=== PATIENT | female | born 1955 | race Caucasian/White ===

== ENCOUNTER 2019-12-05 07:45 | Outpatient (CLI) | payer MEDICARE, SELFPAY ==
--- NOTE | ~2019-12-05 | DEXA_ITS ---
Bone Density Report Name: Lizz Morin Age: 63 Sex: Female Ethnicity: White Date of : 1955 Indication: postmenopausal; Referring Provider: Obdulia, Maren Estrada Study: Bone densitometry was performed. Exam Date: December 05, 2019 Accession number: [id number] Bone Density: Region BMD T-score Z-score Classification AP Spine (L1-L4) 0.784 -2.4 -0.8 Osteopenia Femoral Neck (Left) 0.697 -1.4 0.0 Osteopenia Total Hip (Left) 0.890 -0.4 0.6 Normal Total Hip Bilateral Avg 0.861 -0.6 0.4 Normal Femoral Neck (Right) 0.683 -1.5 -0.1 Osteopenia Total Hip (Right) 0.831 -0.9 0.1 Normal World Health Organization criteria for BMD impression classify patients as: Normal (T-score at or above -1.0), Osteopenia (T-score between -1.0 and -2.5), or Osteoporosis (T-score at or below -2.5). 10-year Fracture Risk(1): Major Osteoporotic Fracture 8.4% Hip Fracture 0.8% Reported Risk Factors: [place] (), Neck BMD=0.683, BMI=27.7 (1) FRAX(R) Version 3.08. Fracture probability calculated for an untreated patient. Fracture probability may be lower if the patient has received treatment. Clinical Information Provided by Patient: Has used the following medications: Vitamin D, Calcium Patient maximum height was 62 Menopause Age: 52 Onset of menses at age 15 Number of children 2 Impression: The patient has low bone mass, based on the Total Spine T-score. The patient has an estimated ten-year risk of hip fracture of 0.8% and an estimated ten-year risk of major fracture of 8.4%, based on the WHO FRAX algorithm. Discussion: BONE DENSITY IS LOW AT ONE OR MORE SKELETAL SITES. This patient's lowest T-score is low at one or more skeletal sites. It meets the World Health Organization's (WHO) criteria for ?low bone mass? (T-score between -1.0 and -2.5). The patient's 10-year risk of fracture as calculated by FRAX is less than the threshold where pharmacological therapy is recommended by the National Osteoporosis Foundation (NOF). However, all treatment decisions require clinical judgment and consideration of individual patient factors, including patient preferences, comorbidities, previous drug use, risk factors not captured in the FRAX model (e.g., frailty, falls, vitamin D deficiency, increased bone turnover, interval significant decline in bone density) and possible under or overestimation of fracture risk by FRAX. The patient should follow a healthful lifestyle (good nutrition with adequate calcium and vitamin D, and appropriate weight-bearing exercise). Follow-Up: Consider repeating this study in 2 to 3 years to reassess this patient's status, or sooner if there is some new clinical indication. Reported by: VAIBHAV on 12/05/2019 8:40:00 AM. Reviewed, dictated and finalized at
--- NOTE | ~2019-12-05 | MM_ITS ---
EXAMINATION: MM screening brenda BI w lu HISTORY: Screening mammogram TECHNIQUE: Craniocaudal and mediolateral oblique 3-D tomosynthesis images were obtained and synthetic 2-D images were generated. CAD analysis was submitted and interpreted. COMPARISON: 12/11/2018 diagnostic right digital mammogram 12/02/2018, 11/30/2017, 11/28/2016 bilateral digital screening mammogram examinations BREAST PARENCHYMAL COMPOSITION: The breasts are heterogeneously dense, which may obscure small masses . FINDINGS: Subtle microcalcifications are noted in the outer right breast on cc view. Magnification vi ews are recommended. Otherwise there is no evidence of suspicious mass, calcification, or architectural distortion to sugg est malignancy in either breast. There has been no suspicious interval change. IMPRESSION: 1. Subtle indeterminate microcalcifications of right breast 2. Diagnostic right mammogram with magnification views is recommended. BI-RADS Category 0: Incomplete: Needs additional imaging evaluation. Reviewed, dictated and finalized at location A.
== END 2019-12-05 07:46 | disposition home or self-care (01) ==
PROVIDERS: PCP Family Medicine; Visit Provider Nurse Practitioner Obstetrics & Gynecology
DX: Z12.31 Encounter for screening mammogram for malignant neoplasm of breast (principal); Z78.0 Asymptomatic menopausal state; R92.8 Other abnormal and inconclusive findings on diagnostic imaging of breast; M85.89 Other specified disorders of bone density and structure, multiple sites
CPT/HCPCS: 77063; 77067; 77080

== ENCOUNTER 2019-12-18 10:58 | Outpatient (CLI) | payer MEDICARE, SELFPAY ==
--- NOTE | ~2019-12-18 | MMUS_ITS ---
EXAMINATION: MM diagnostic mammo unilat RT, US breast RT complete HISTORY: Subtle microcalcifications noted in the outer right breast on screening craniocaudal view of 12/05/2019 TECHNIQUE: Additional 3-D tomosynthesis images of the right breast were performed and synthetic 2-D i mages were generated. Magnification views of right breast in 3 projections. CAD analysis was submitte d and interpreted. High resolution complete right breast ultrasound was performed. COMPARISON: 12/05/2019 bilateral digital screening mammogram FINDINGS: MAMMOGRAPHIC FINDINGS: Arterial calcifications and occasional punctate subtle benign calcifications are noted, without any a pparent malignant features. ULTRASOUND: There is no evidence of focal abnormal solid or cystic lesion or significant abnormal shadowing of th e right breast. IMPRESSION: 1. No mammographic evidence of malignancy 2. Routine annual mammographic screening is recommended. BI-RADS Category 2: Benign finding(s). Reviewed, dictated and finalized at location A. IMPRESSION: 1. No mammographic evidence of malignancy 2. Routine annual mammographic screening is recommended. BI-RADS Category 2: Benign finding(s).
== END 2019-12-18 10:59 | disposition home or self-care (01) ==
PROVIDERS: PCP Family Medicine; Visit Provider Nurse Practitioner Obstetrics & Gynecology
DX: R92.8 Other abnormal and inconclusive findings on diagnostic imaging of breast (principal)
CPT/HCPCS: 76641; 77065

== ENCOUNTER → 2020-12-21 08:32 | Outpatient (CLI) | payer MEDICARE, SELFPAY ==
--- NOTE | ~2020-12-21 | MM_ITS ---
EXAMINATION: MM screening brenda BI w lu HISTORY: Screening TECHNIQUE: Craniocaudal and mediolateral oblique 3-D tomosynthesis images were obtained and synthetic 2-D images were generated. CAD analysis was submitted and interpreted. COMPARISON: Comparison to multiple prior studies sequentially, with oldest reviewed study dated 11/30. BREAST PARENCHYMAL COMPOSITION: The breasts are heterogenously dense, which may obscure small masses. FINDINGS: There is no evidence of suspicious mass, calcification, or architectural distortion to sugg est malignancy in either breast. There has been no suspicious interval change. IMPRESSION: 1. No mammographic evidence of malignancy. 2. Recommend routine screening mammography in one year. BI-RADS Category 1: Negative Reviewed, dictated and finalized at location A.
== END ==
PROVIDERS: Visit Provider Nurse Practitioner Obstetrics & Gynecology
DX: Z12.31 Encounter for screening mammogram for malignant neoplasm of breast (principal)
CPT/HCPCS: 77063; 77067

== ENCOUNTER 2021-04-15 15:01 | Outpatient (CLI) | payer MEDICARE, SELFPAY ==
--- NOTE | ~2021-04-15 | XR_ITS ---
EXAMINATION: XR chest 2V EXAM DATE: 04/15/2021 15:19 INDICATION: R05 - Cough,, chronic for 2 years. TECHNIQUE: Frontal and lateral projections of the chest obtained and reviewed. Comparison is made to prior examination from 11/19/2017. FINDINGS: The lungs are clear. There are no pleural effusions. The cardiomediastinal silhouette is within normal limits. There is no pneumothorax suspected. Mild thoracic spondylosis. There are chol ecystectomy clips. IMPRESSION: No acute cardiopulmonary findings. Reviewed, dictated and finalized at location A.
== END 2021-04-15 15:02 | disposition home or self-care (01) ==
PROVIDERS: PCP Family Medicine; Visit Provider Family Medicine
DX: R05 Cough (principal)
CPT/HCPCS: 71046

== ENCOUNTER → 2021-12-22 11:29 | Outpatient (CLI) | payer MEDICARE, SELFPAY ==
--- NOTE | ~2021-12-22 | MM_ITS ---
EXAMINATION: MM screening [facility] BI w lu HISTORY: Screening mammogram TECHNIQUE: Craniocaudal and mediolateral oblique 3-D tomosynthesis images were obtained and synthetic 2-D images were generated. CAD analysis was submitted and interpreted. COMPARISON: 12/21/2020, 12/18/2019, 12/05/2019, 12/21/2018, 11/23/2018 BREAST PARENCHYMAL COMPOSITION: The breasts are heterogeneously dense, which may obscure small masses . FINDINGS: There is no suspicious mass, calcification, or architectural distortion to suggest malignan cy in either breast. There has been no suspicious interval change. IMPRESSION: 1. No mammographic evidence of malignancy. 2. Recommend routine screening mammography in one year. BI-RADS Category 1: Negative Reviewed, dictated and finalized at location A.
== END ==
PROVIDERS: PCP Family Medicine; Visit Provider Nurse Practitioner Obstetrics & Gynecology
DX: Z12.31 Encounter for screening mammogram for malignant neoplasm of breast (principal)
CPT/HCPCS: 77063; 77067

== ENCOUNTER 2021-12-30 09:00 | Outpatient (CLI) | payer MEDICARE, SELFPAY ==
--- NOTE | ~2021-12-30 | NM_ITS ---
EXAMINATION: NM stress w perf spect multi DATE: 12/30/2021 12:00 INDICATION: Chest pain. TECHNIQUE: Rest images were obtained following intravenous administration of 9.47 mCi Tc99m tetrofosm in (Myoview). The patient performed an exercise activity. At peak exercise, 30 mCi Tc99m tetrofosmin (Myoview) was administered intravenously, and stress images were obtained. Data was reconstructed int o short axis and horizontal and vertical long axis SPECT images. Gated SPECT images were also obtaine d. COMPARISON: None. FINDINGS: There is no definite reversible or fixed perfusion abnormality to suggest ischemia or infar ction. There is no segmental wall motion abnormality. Left ventricular ejection fraction measures > 70%. IMPRESSION: 1. No definite ischemia or infarct. 2. Normal left ventricular ejection fraction measuring >70%. Reviewed, dictated and finalized at location A.
--- NOTE | 2021-12-30 10:31 | EST_ITS ---
Patient Info Name: Lizz Morin Age: 66 years : 1955 Gender: Female Ht: 62 in Wt: 148 lbs BSA: 1.73 m2 HR: 64 bpm BP: 132 / 87 mmHg Heart Rhythm: Sinus Rhythm Exam Date: 12/30/2021 10:43 AM Exam Location: [facility] Stress Patient Status: Outpatient Admit Date: 12/30/2021 Staff Ordering Physician: Brent Smart MD Attending Provider: Brent Smart MD Exercise Technologist: Rica Ashby CT Exercise Physician: Kota Crowell DO Exam Type: CA stress test treadmill w NM Study Info Indications R07.9 - Chest pain, unspecified A nuclear stress test was performed. Summary 1. 1. Negative Ezequiel exercise stress test for ischemic ST changes by ECG criteria. 2. 2. Good functional capacity, achieving 10 METs of workload. 3. 3. Appropriate HR response to exercise. 4. 4. Appropriate HR recovery at 1 minute post exercise. 5. 5. Hypertensive response to exercise. 6. 6. Nuclear scan to follow and will be reported separately. Please correlate with it. 7. 7. Patient informed of the above results. Protocol: Ezequiel Stress ECG Details Stage: REST Duration (min): 1 min : 6 sec Speed (mph): 0.0 Grade (%): 0 HR (bpm): 64 SBP (mmHg): 132 DBP (mmHg): 87 METS: --- Stage: REST Duration (min): 10 min : 26 sec Speed (mph): 0.0 Grade (%): 0 HR (bpm): 69 SBP (mmHg): 132 DBP (mmHg): 87 METS: --- Stage: STAGE 1 Duration (min): 1 min : 0 sec Speed (mph): 1.7 Grade (%): 10 HR (bpm): 87 SBP (mmHg): 132 DBP (mmHg): 87 METS: --- Stage: STAGE 1 Duration (min): 2 min : 0 sec Speed (mph): 1.7 Grade (%): 10 HR (bpm): 108 SBP (mmHg): 132 DBP (mmHg): 87 METS: --- Stage: STAGE 1 Duration (min): 3 min : 0 sec Speed (mph): 1.7 Grade (%): 10 HR (bpm): 109 SBP (mmHg): 177 DBP (mmHg): 84 METS: --- Stage: STAGE 2 Duration (min): 1 min : 0 sec Speed (mph): 2.5 Grade (%): 12 HR (bpm): 116 SBP (mmHg): 177 DBP (mmHg): 84 METS: --- Stage: STAGE 2 Duration (min): 2 min : 0 sec Speed (mph): 2.5 Grade (%): 12 HR (bpm): 120 SBP (mmHg): 200 DBP (mmHg): 84 METS: --- Stage: STAGE 2 Duration (min): 3 min : 0 sec Speed (mph): 2.5 Grade (%): 12 HR (bpm): 121 SBP (mmHg): 200 DBP (mmHg): 84 METS: --- Stage: STAGE 3 Duration (min): 1 min : 0 sec Speed (mph): 3.4 Grade (%): 14 HR (bpm): 138 SBP (mmHg): 200 DBP (mmHg): 84 METS: --- Stage: STAGE 3 Duration (min): 1 min : 45 sec Speed (mph): 3.4 Grade (%): 14 HR (bpm): 137 SBP (mmHg): 200 DBP (mmHg): 84 METS: --- Stage: RECOVERY Duration (min): 0 min : 14 sec Speed (mph): 1.5 Grade (%): 0 HR (bpm): 139 SBP (mmHg): 200 DBP (mmHg): 84 METS: --- Stage: RECOVERY Duration (min): 1 min : 14 sec Speed (mph): 0.0 Grade (%): 0 HR (bpm):
== END 2021-12-30 09:01 | disposition home or self-care (01) ==
LOC: ANHCARD 09:04
PROVIDERS: PCP Family Medicine; Visit Provider Family Medicine
DX: R07.89 Other chest pain (principal)
CPT/HCPCS: 78452; 93017; A9502

== ENCOUNTER 2022-01-20 07:55 | Outpatient (CLI) | payer MEDICARE, SELFPAY ==
--- NOTE | ~2022-01-20 | US_ITS ---
EXAMINATION: US carotid duplex BI DATE: 01/20/2022 09:20 INDICATION: Right carotid bruit TECHNIQUE: Grayscale, color Doppler, and pulsed Doppler images of the cervical carotid arteries were obtained. The degree of vessel stenosis is placed in one of the following categories: normal, <50%, 5 0-69%, >=70% but less than near-occlusion, near-occlusion, or total occlusion. Note that percent sten osis relative to normal distal artery lumen diameter is indirectly measured from velocity measurement s as described by Andrew, et al. Radiology 2003; 229:340-346. Notes: Normal: Peak systolic velocity <125 centimeters/sec and no plaque <50%. Peak systolic velocity <125 ( EDV <40; ICA/CCA PSV ratio <2.0; used these factors only a tandem lesions or low cardiac output or co ntralateral disease) 50-69 %: PSV 125-230 (EDV 40-100; ratio 2-4) >= 70% but less than near occlusion: PSV greater than 230 (EDV > 100; ratio> 4.0) Near Occlusion: PSV that is variable; markedly narrowed lumen Occlusion: Absent flow on color/spectral Doppler and no lumen on cesar scale. COMPARISON: None. FINDINGS: RIGHT: The right common carotid artery (CCA) peak systolic velocity (PSV) is 87 cm/s. The right internal car otid artery (ICA) PSV is 82 cm/s. The right ICA end-diastolic velocity (EDV) is 29 cm/s. The right IC A/CCA PSV ratio is 0.9. The external carotid artery (ECA) PSV is 84 cm/s. There is antegrade flow in the right vertebral artery. LEFT: The left CCA PSV is 81 cm/s. The left ICA PSV is 69 cm/s. The left ICA EDV is 24 cm/s. The left ICA/C CA PSV ratio is 0.8. The ECA PSV is 56 cm/s. There is antegrade flow in the left vertebral artery. IMPRESSION: 1. Less than 50% stenosis in the right internal carotid artery by sonographic criteria. 2. Less than 50% stenosis in the left internal carotid artery by sonographic criteria. Reviewed, dictated and finalized at location A. IMPRESSION: 1. Less than 50% stenosis in the right internal carotid artery by sonographic hannah whitfield. 2. Less than 50% stenosis in the left internal carotid artery by sonographic gerardo chacko.
--- NOTE | ~2022-01-20 | DEXA_ITS ---
Bone Density Report Name: THANG MOLINA Age: 66 Sex: Female Ethnicity: White Date of : 1955 Indication: postmenopausal; screening for osteoporosis; Referring Provider: JOB CARLISLE Study: Bone densitometry was performed. Exam Date: January 20, 2022 Accession number: [id number] Bone Density: Region BMD T-score Z-score Classification AP Spine(L1-L4) 0.799 -2.3 -0.6 Osteopenia Femoral Neck (Left) 0.672 -1.6 -0.1 Osteopenia Total Hip (Left) 0.791 -1.2 -0.1 Osteopenia Femoral Neck (Right) 0.668 -1.6 -0.2 Osteopenia Total Hip (Right) 0.800 -1.2 0.0 Osteopenia Total Hip Mean 0.795 -1.2 -0.1 Osteopenia World Health Organization criteria for BMD impression classify patients as: Normal (T-score at or above -1.0), Osteopenia (T-score between -1.0 and -2.5), or Osteoporosis (T-score at or below -2.5). 10-year Fracture Risk(1): Major Osteoporotic Fracture 9.1% Hip Fracture 1.0% Reported Risk Factors: [place] (), Neck BMD=0.672, BMI=27.3 (1) FRAX(R) Version 3.08. Fracture probability calculated for an untreated patient. Fracture probability may be lower if the patient has received treatment. Clinical Information Provided by Patient: Has used the following medications: Vitamin D, Calcium Patient maximum height was 62 Menopause Age: 52 Drinks caffeinated beverages Onset of menses at age 15 Number of children 2 Impression: The patient has low bone mass, based on the Total Spine T-score. The patient has an estimated ten-year risk of hip fracture of 1% and an estimated ten-year risk of major fracture of 9.1%, based on the WHO FRAX algorithm. Discussion: BONE DENSITY IS LOW AT ONE OR MORE SKELETAL SITES. This patient's lowest T-score is low at one or more skeletal sites. It meets the World Health Organization's (WHO) criteria for ?low bone mass? (T-score between -1.0 and -2.5). The patient's 10-year risk of fracture as calculated by FRAX is less than the threshold where pharmacological therapy is recommended by the National Osteoporosis Foundation (NOF). However, all treatment decisions require clinical judgment and consideration of individual patient factors, including patient preferences, comorbidities, previous drug use, risk factors not captured in the FRAX model (e.g., frailty, falls, vitamin D deficiency, increased bone turnover, interval significant decline in bone density) and possible under or overestimation of fracture risk by FRAX. The patient should follow a healthful lifestyle (good nutrition with adequate calcium and vitamin D, and appropriate weight-bearing exercise). Follow-Up: Consider repeating this study in 2 to 3 years to reassess this patient's status, or sooner if there is some new clinical indication. Reported by: KAMI on 01/20/2022 8:15:00 AM.
== END 2022-01-20 07:56 | disposition home or self-care (01) ==
LOC: ANHIMG 07:56
PROVIDERS: PCP Family Medicine; Visit Provider Family Medicine
DX: R09.89 Other specified symptoms and signs involving the circulatory and respiratory systems (principal); Z78.0 Asymptomatic menopausal state; I65.23 Occlusion and stenosis of bilateral carotid arteries; M85.89 Other specified disorders of bone density and structure, multiple sites
CPT/HCPCS: 77080; 93880

== ENCOUNTER → 2022-12-25 10:36 | Outpatient (CLI) | payer MEDICARE, SELFPAY ==
--- NOTE | ~2022-12-25 | MM_ITS ---
EXAMINATION: MM screening [facility] BI w lu HISTORY: Screening mammogram TECHNIQUE: Craniocaudal and mediolateral oblique 3-D tomosynthesis images were obtained and synthetic 2-D images were generated. CAD analysis was submitted and interpreted. COMPARISON: 12/22/2021, 11/21/2020, 12/18/2019, 12/05/2019, 12/02/2018 BREAST PARENCHYMAL COMPOSITION: The breasts are heterogeneously dense, which may obscure small masses . FINDINGS: No suspicious mass, calcification, or architectural distortion are identified in either dion ast to suggest malignancy. There has been no suspicious interval change. IMPRESSION: 1. No mammographic evidence of malignancy. 2. Recommend routine screening mammography in one year. BI-RADS Category 1: Negative Reviewed, dictated and finalized at location A.
== END ==
PROVIDERS: PCP Family Medicine; Visit Provider Family Medicine
DX: Z12.31 Encounter for screening mammogram for malignant neoplasm of breast (principal)
CPT/HCPCS: 77063; 77067

== ENCOUNTER → 2023-07-17 15:06 | Outpatient (CLI) | payer MEDICARE, SELFPAY ==
--- NOTE | ~2023-07-17 | XR_ITS ---
EXAMINATION: XR chest 2V Exam Date/Time: 07/17/2023 15:09 SOCIAL MEDIA JOB TITLES HISTORY: R05.9 - Cough, unspecified x 3 wks Comparison: 04/15/2021. RESULT: Lines, tubes, and devices: Cholecystectomy clips. Lungs and pleura: Clear. Cardiomediastinal silhouette: Stable. Other: No acute osseous or upper abdominal finding. IMPRESSION: No acute cardiopulmonary process. Reviewed, dictated and finalized at location K. [place] MEDIA JOB TITLES
== END ==
PROVIDERS: PCP Family Medicine; Visit Provider Family Medicine
DX: R05.9 Cough, unspecified (principal)
CPT/HCPCS: 71046

== ENCOUNTER 2023-12-28 08:13 | Outpatient (CLI) | payer MEDICARE, SELFPAY ==
--- NOTE | ~2023-12-28 | MM_ITS ---
EXAMINATION: MM screening brenda BI w lu HISTORY: Screening mammogram TECHNIQUE: Craniocaudal and mediolateral oblique 3-D tomosynthesis images were obtained and synthetic 2-D images were generated. CAD analysis was submitted and interpreted. COMPARISON: 12/25/2022, 12/22/2021 bilateral screening mammogram examinations BREAST PARENCHYMAL COMPOSITION: The breasts are heterogeneously dense, which may obscure small masses . FINDINGS: There is no evidence of suspicious mass, calcification, or architectural distortion to sugg est malignancy in either breast. There has been no suspicious interval change. IMPRESSION: 1. No mammographic evidence of malignancy. 2. Recommend routine screening mammography in one year. BI-RADS Category 1: Negative Reviewed, dictated and finalized at location B.
== END 2023-12-28 08:14 | disposition home or self-care (01) ==
LOC: CHSIMG 08:14
PROVIDERS: PCP Family Medicine; Visit Provider Family Medicine
DX: Z12.31 Encounter for screening mammogram for malignant neoplasm of breast (principal)
CPT/HCPCS: 77063; 77067

== ENCOUNTER 2024-01-25 08:12 | Outpatient (CLI) | payer MEDICARE, SELFPAY ==
--- NOTE | ~2024-01-25 | DEXA_ITS ---
? Bone Density Report? Name:? THANG MOLINA Patient ID:??? [id number] Age:? 68 Sex:? Female Ethnicity:? White Date of : 1955 Indication: postmenopausal; screening for osteoporosis; parental hip fracture; height loss; Referring Provider: JOB CARLISLE Study: Bone densitometry was performed. Exam Date: January 25, 2024 Accession number: [id number] Bone Density: Region? BMD??? T-score? Z-score?? Classification AP Spine(L1-L4)? 0.728?? -2.9? -1.1? Osteoporosis Femoral Neck (Left)? 0.637?? -1.9? -0.3? Osteopenia Total Hip (Left)? 0.814?? -1.0? 0.2? Normal Femoral Neck (Right)? 0.650?? -1.8? -0.2? Osteopenia Total Hip (Right)? 0.800?? -1.2? 0.1? Osteopenia Femoral Neck Mean? 0.643?? -1.9? -0.3? Osteopenia Total Hip Mean? 0.807?? -1.1?0.2? Osteopenia World Health Organization criteria for BMD impression classify patients as: Normal (T-score at or above -1.0), Osteopenia (T-score between -1.0 and -2.5), or Osteoporosis (T-score at or below -2.5). 10-year Fracture Risk: FRAX not reported because: ? Some T-score for Spine Total or Hip Total or Femoral Neck at or below -2.5 Clinical Information Provided by Patient: Parent has had a hip fracture Has used the following medications: Vitamin D, Calcium, multi Patient maximum height was 62 Menopause Age: 52 No regular weight bearing exercise Does not regularly consume dairy products Drinks caffeinated beverages Onset of menses at age 15 Number of children 2 Impression: The patient has osteoporosis, based on the Total Spine T-score. The patient has risk factors, including: parental hip fracture. Discussion: INCREASED RISK OF FRACTURE. BONE DENSITY IS UNDESIRABLY LOW AT ONE OR MORE SKELETAL SITES, CONSISTENT WITH POSTMENOPAUSAL OSTEOPOROSIS. This patient's lowest T-score meets the World Health Organization's (WHO) criteria for osteoporosis at one or more sites (T-score -2.5 or below).? In untreated patients, the risk of osteoporotic fracture increases approximately two-fold for each 1.0 SD decrease in T-score.? Low bone density is not the only risk factor for fracture; also consider factors such as patient's age, frailty or poor health, risk of falling, risk of injury, previous osteoporotic fracture, family history of osteoporosis, cigarette smoking, low body weight, etc.? Not everyone with low bone mineral density has osteoporosis; osteomalacia and other metabolic bone disorders should also be considered. Patients who have osteoporosis should be evaluated for specific diseases and conditions (secondary causes) that may cause or contribute to bone loss.? The [place] [employer] (AA
== END 2024-01-25 08:13 | disposition home or self-care (01) ==
PROVIDERS: PCP Family Medicine; Visit Provider Family Medicine
DX: Z78.0 Asymptomatic menopausal state (principal); M81.0 Age-related osteoporosis without current pathological fracture; M85.89 Other specified disorders of bone density and structure, multiple sites
CPT/HCPCS: 77080

== ENCOUNTER 2024-08-29 22:21 | Emergency (ER) | payer MEDICARE, SELFPAY ==
[2024-08-29 22:22] VITALS: BP 146/78; PULSE 97; RESP 16; TEMP 36.7; O2SAT 97
--- OUTSIDE RECORDS SUMMARY | 2024-08-29 22:23 | XMS_ITS | Data Portability ---
Author Organization [facility] Address [address] [place] [address] Care Team Providers Care [employer] Teacher Name Role Phone AZALIA CARLISLE Primary Care Provider [phone] Assessment Encounter Date Assessment Date Assessment LastModified by Organization Details LastModified Time 12/05/2019 12/05/2019 Annual gynecological exam performed. Patient will come back in a year unless there are new symptoms. [email or web address] Not available 12/05/2019 10:17:46 12/20/2020 12/20/2020 Annual gynecological exam performed. Patient will come back in a year unless there are new symptoms. Not available 12/20/2020 10:12:25 12/22/2021 12/22/2021 Annual gynecological exam performed. Patient will come back in a year unless there are new symptoms. Not available 12/22/2021 12:01:24 12/25/2023 12/25/2023 Annual gynecological exam performed. Patient will come back in a year unless there are new symptoms. [email or web address] Not available 12/25/2023 09:56:22 Plan of Treatment Reminders Order Date Submit Date Provider Last Modified By Organization Details Last Modified Time Details Appointments None recorded. Lab None recorded. Referral gastroenter ologist referral - Lizz has seen Dr. Hollis in the past and prefers to see him, if possible 2020 021 [email or web address] [facility], [address], [id number], [place], [address], 14:44:11 Procedures None recorded. Surgeries None recorded. Imaging MAMMO, screening, bilateral 2023 024 [email or web address] [facility], [address] [place] [address], [place], [address], 4 10:23:50 Medication Orders Vagifem 10 mcg vaginal tablet 2023 024 [id number], [address] [place], [address], 4 10:09:30 Patient TargetsNo targets recorded. 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 Hollis in the past and prefers to see him, if possible Referring Physician: Maren Steiner, STRATEGIC DEVELOPMENT MANAGER, Encounter Date: 12/20/2020 Results Created Date Observation Date Name Description Value Unit Range Abnormal Flag Note LastModifiedBy Organization Detail LastModifiedTime 12/05/19 20 12/06/2019 HPV DNA, high- risk HPV high risk NOT DETECT ED normal The human papil lomav irus (HPV) High Risk Dorothy tirado is an FDA-a pprov ed in-vi tro ampli fied nucle ic acid test for the quali tativ e detec tion of E6/E7 viral mRNA. Resul joaquin lewis d be corre lated with patie nt prese ntati on, histo ry, cervi nahomi cytol ogy and other clini nahomi and labor atory findi ngs. See https ://ww wEclector. [employer]/s ites/ defau lt/fi les/2 018-0 3/AW- 68228 _002_ 01.pd f for carter tirado. Test perfo rmed by [facility], [address], [place] [address] , Lauren Carmen ra, DO, [facility]. Not Available [facility] ([facility]) [address] [place] [address] Dr [address], [place], [address], 12/08/2019 09:15:35 07/26/20 20 07/27/2020 CBC w/ auto diff WBC 5.8 K/uL 3.8-11 .5 Not Available [facility] ([facility]) [address] [place] [address] [address], [place], [address], 07/27/2020 09:13:38 07/26/2007/27/2020 CBC w/ auto diff red blood cell count (RBC) 4.42 M/mm3 3.60-5 .30 Not Available [facility] ([facility]) [address] [place] [address] [address], [place], [address], 07/27/2020 09:13:38 07/26/20 20 07/27/2020 CBC w/ auto diff hemoglobin (HGB) 14.2 gm/dL 11.5-1 5.5 Not Available [facility] ([facility]) [address] [place] [address] [address], [place], [address], 07/27/2020 09:13:38 07/26/20 20 07/27/2020 CBC w/ auto diff hematocrit (HCT) 41.5 % 35.2-4 6.4 Not Available [facility] ([facility]) [address] [place] [address] [address], [place], [address], 07/27/2020 09:13:38 07/26/2007/27/2020 CBC w/ auto diff MCV 93.9 fL 79.0-9 9.0 Not Available [facility] ([facility]) [address] [place] [address] [address], [place], [address], 07/27/2020 09:13:38 07/26/20 20 07/27/2020 CBC w/ auto diff MCH 32.1 pg 26.9-3 5.0 Not Available [facility] ([facility]) [address] [place] [address] [address], [place], [address], 07/27/2020 09:13:38 07/26/20 20 07/27/2020 CBC w/ auto diff MCHC 34.2 g/dL 30.4-3 4.8 Not Available [facility] ([facility]) [address] [place] [address], [place], [address], 07/27/2020 09:13:38 07/26/20 20 07/27/2020 CBC w/ auto diff RDW 45.8 fL 38.6-5 3.8 Not Available [facility] ([facility]) [address] [place] [address] [address], [place], [address], 07/27/2020 09:13:38 07/26/20 20 07/27/2020 CBC w/ auto diff platelet count 375 K/cum m 137-39 7 Not Available [facility] ([facility]) [address] [place] [address] [address], [place], [address], 07/27/2020 09:13:38 07/26/20 20 07/27/2020 CBC w/ auto diff neutrophils automated 52.4 % 41.0-7 7.0 Not Available [facility] ([facility]) [address] [place] [address] [address], [place], [address], 07/27/2020 09:13:38 07/26/20 20 07/27/2020 CBC w/ auto diff lymphocytes automated 37.6 % 14.0-4 8.0 Not Available [facility] ([facility]) [address] [place] [address] [address], [place], [address], 07/27/2020 09:13:38 12/21/20 20 07/27/2020 CBC w/ auto diff monocytes automated 7.8 % 4.0-13 .0 Not Available [facility] ([facility]) [address] [place] [address] [address], [place], [address], 07/27/2020 09:13:38 07/26/20 20 07/27/2020 CBC w/ auto diff eosinophils automated 1.7 % 0.0-8. 0 Not Available [facility] ([facility]) [address] [place] [address] [address], [place], [address], 07/27/2020 09:13:38 07/26/2007/27/2020 CBC w/ auto diff basophils automated 0.3 % 0.0-1. 5 Not Available [facility] ([facility]) [address] [place] [address] [address], [place], [address], 07/27/2020 09:13:38 07/26/20 20 07/27/2020 CBC w/ auto diff immature granulocyte automated 0.2 % 0.0-1. 0 Not Available [facility] ([facility]) [address] [place] [address] Dr [address], [place], [address], 07/27/2020 09:13:38 07/26/20 20 07/27/2020 CMP, serum or plasm a sodium 140 mEq/L 135-14 5 Not Available [facility] ([facility]) [address] [place] [address] Dr [address], [place], [address], 07/27/2020 09:13:39 07/26/20 20 07/27/2020 CMP, serum or plasm a potassium 5.0 mEq/L 3.5-5. 3 Not Available [facility] ([facility]) [address] [place] [address] [address], [place], [address], 07/27/2020 09:13:39 07/26/20 20 07/27/2020 CMP, serum or plasm a chloride 101 mEq/L 97-108 Not Available [facility] ([facility]) [address] [place] [address] [address], [place], [address], 07/27/2020 09:13:39 07/26/20 20 07/27/2020 CMP, serum or plasm a CO2 28 mEq/L 22-32 Not Available [facility] ([facility]) [address] [place] [address] [address], [place], [address], 07/27/2020 09:13:39 07/26/20 20 07/27/2020 CMP, serum or plasm a glucose 108 mg/dL 65-99 high Not Available [facility] ([facility]) [address] [place] [address] Dr [address], [place], [address], 07/27/2020 09:13:39 07/26/20 20 07/27/2020 CMP, serum or plasm a BUN 15 mg/dL 8-23 Not Available [facility] ([facility]) [address] [place] [address] [address], [place], [address], 07/27/2020 09:13:39 07/26/20 20 07/27/2020 CMP, serum or plasm a creatinine 0.93 mg/dL 0.50-1 .00 Not Available [facility] ([facility]) [address] [place] [address] [address], [place], [address], 07/27/2020 09:13:39 07/26/20 20 07/27/2020 CMP, serum or plasm a calcium 9.9 mg/dL 8.6-10 .4 Not Available [facility] ([facility]) [address] [place] [address] [address], [place], [address], 07/27/2020 09:13:39 07/26/20 20 07/27/2020 CMP, serum or plasm a protein 7.4 g/dL 6.0-8. 3 Not Available [facility] ([facility]) [address] [place] [address] [address], [place], [address], 07/27/2020 09:13:39 07/26/20 20 07/27/2020 CMP, serum or plasm a albumin 4.8 g/dL 3.5-5. 3 Not Available [facility] ([facility]) [address] [place] [address] [address], [place], [address], 07/27/2020 09:13:39 07/26/2007/27/2020 CMP, serum or plasm a alkaline phosphatase 75 IU/L 35-121 Not Available [facility] ([facility]) [address] [place] [address] [address], [place], [address], 07/27/2020 09:13:39 07/26/20 20 07/27/2020 CMP, serum or plasm a ALT (SGPT) 13 IU/L <5-47 Not Available [facility] ([facility]) [address] [place] [address] Dr [address], [place], [address], 07/27/2020 09:13:39 07/26/20 20 07/27/2020 CMP, serum or plasm a AST (SGOT) 17 IU/L <5-40 Not Available [facility] ([facility]) [address] [place] [address] [address], [place], [address], 07/27/2020 09:13:39 07/26/2007/27/2020 CMP, serum or plasm a bilirubin, total 0.4 mg/dL <0.2-1 .2 Not Available [facility] ([facility]) [address] [place] [address] [address], [place], [address], 07/27/2020 09:13:39 07/26/20 20 07/27/2020 CMP, serum or plasm a A/G ratio 1.8 mg/dL 1.1-2. 5 Not Available [facility] ([facility]) [address], [place], [address], 07/27/2020 09:13:39 07/26/20 20 07/27/2020 GFR, estim ated (eGFR ), serum estimated GFR (black) 76 mL/mi n/1.7 3m2 >59 Not Available [facility] ([facility]) [address], [place], [address], 07/27/2020 09:13:39 07/26/20 20 07/27/2020 GFR, estim ated (eGFR ), serum estimated GFR (other) 66 mL/mi n/1.7 3m2 >59 GFR Categ ories in Chron ic Kidne y Disea se (CKD) GFR Categ ory GFR (mL/m in/1. 73 sq. meter s) Inter preta tion G1 90 or great er Shea l or high* G2 60-89 Mild decre ase* G3a 45-59 Mild to moder ate decre ase G3b 30-44 Moder ate to sever e decre ase G4 15-29 Sever e decre ase G5 14 or less Kidpeter torres failu re *In the absen ce of primo calderon e neith er GFR categ ory G1 or G2 fulfi ll the crite luis for CKD (Kidn ey Int Suppl 2013; 3.1-1 50) The CKD-E PI calcu latio n is inten ded for use in patie nts 18 years of age and older . Decre ased calcu latio n accur acy may be seen in patie nts takin g medic ation s that affec t renal excre tion, or in those patie nts with extre mes in muscl e mass or diet. Not Available [facility] ([facility]) [address], [place], [address], 07/27/2020 09:13:39 07/26/20 20 07/27/2020 phosp horus , serum or plasm a phosphorus 4.1 mg/dL 2.5-4. 5 Not Available [facility] ([facility]) [address] [place] [address] [address], [place], [address], 07/27/2020 09:13:40 07/26/20 20 07/27/2020 TSH, serum or plasm a TSH reflex to FT4 3.92 mU/L 0.27-4 .20 Not Available [facility] ([facility]) [address] [place] [address] [address], [place], [address], 07/27/2020 09:13:40 07/26/20 20 07/27/2020 vitam in D, 25-hy droxy , total , serum vitamin D 25-hydroxy 37.1 NG/mL 30.0-1 00.0 Inter preta tion of Vitam in D 25 OH: < 20 ng/mL - Defic iency 20 - 29 ng/mL - Insuf ficie ncy 30 - 100 ng/mL - Suffi cienc y > 100 ng/mL - Super -ther apeut ic- toxic ity may occur above this level . Clini nahomi corre latio n requi red. Not Available [facility] ([facility]) [address] [place] [address] [address], [place], [address], 07/27/2020 09:13:41 12/05/19 20 12/05/2019 MAMMO , scree maylin, bilat eral No observ ation record ed. [address] (Imaging) [address] [place] [address], [address], 12/08/2019 14:35:07 12/05/19 20 12/05/2019 MAMMO , scree maylin, bilat eral No observ ation record ed. [address] (Imaging) [address] [place] [address], [address], 12/08/2019 14:35:07 12/12/19 20 MAMMO , scree maylin, bilat eral No observ ation record ed. [email or web address] Not Available 08/2019 14:20:54 12/18/19 20 12/18/2019 MAMMO , diagn ostic , digit al, bilat eral No observ ation record ed. [address] [facility] [address], [place], [address], 12/22/2019 12:04:39 12/23/19 20 12/05/2019 DEXA No observ ation record ed. [email or web address] Not Available 2019 12:36:42 12/22/19 21 12/21/2020 MAMMO , scree maylin, bilat eral No observ ation record ed. layran [facility] [address], [place], [address], 12/24/2020 17:16:17 12/23/19 22 12/22/2021 MAMMO , scree maylin, bilat eral No observ ation record ed. [email or web address] [facility] [address], [place], [address], 12/25/2023 09:59:51 Result Notes None recorded. Problems Name Problem SNOMED Code Status Onset Date Resolution Date Notes Provider Name and Address Organization Details Recorded Time SNOMED CT Concept Completed 201712/21/2021 Encntr for general adult medical exam w/o abnormal findings; Recorded Elsewhere : No Locati on: [facility] So urce: EHR Chron ic: N Practic e ID: [id number] Bill able Time: 11:30:00 AM Sweetie huizar [facility] 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 2 17:19:56 Screenin g for malignan t neoplasm of rectum Completed 201612/21/2021 Encounter for screening for malignant neoplasm of rectum;Re corded Elsewhere : No Locati on: [facility] So urce: EHR Chron ic: N Practic e ID: [id number] Bill able Time: 09:00:00 AM Sweetie Maldonado [facility] 2 17:19:56 Radiolog ic finding [id number] Completed 201812/21/2021 Oth abn and inconclus gerson findings on dx imaging of breast;Re corded Elsewhere : No Locati on: [facility] So urce: EHR Chron ic: N Practic e ID: [id number] Bill able Time: 08:12:09 AM Sweetie Maldonado [facility] 2 17:19:56 Micturit ion finding Completed 201812/21/2021 Urinary incontine nce;Recor ded Elsewhere : No Locati on: [facility] So urce: EHR Chron ic: N Practic e ID: [id number] Bill able Time: 01:00:00 PM Sweetie Maldonado [facility] 2 17:19:56 Polyp of cervix [id number] Completed 201612/21/2021 Polyp of cervix uteri;Rec orded Elsewhere : No Locati on: [facility] So urce: EHR Chron ic: N Practic e ID: [id number] Bill able Time: 11:30:00 AM Sweetie Maldonado [facility] 2 17:19:56 Problem Notes None recorded. Procedures Surgical History Date Name Laterality Status Provider Name and Address Organization Details Recorded Time 12/05/19 Date of Last Pap Smear completed Sweetie Maldonado [facility] 12/22/2021 12:02:17 11/29/19 17 cervical biopsy completed Marige Pettit [facility] 12/23/2020 12:47:34 08/06/19 07 Cholecystectomy completed Margie Pettit [facility] 12/23/2020 12:46:24 10/04/18 82 section completed Margie Pettit [facility] 12/23/2020 12:47:01 Imaging Results Imaging Date Name Status LastModified by Organiz ation Details LastModified Time 12/05/2019 MAMMO, screening, bilateral completed [address] (Imaging) [address] [place] [address] [place] [address], [phone], 12/08/2019 14:35:07 12/05/2019 MAMMO, screening, bilateral completed [address] (Imaging) [address] [place] [address], [address], 12/08/2019 14:35:07 12/12/2019 MAMMO, screening, bilateral completed Information not available 01/05/2020 14:20:54 12/18/2019 MAMMO, diagnostic, digital, bilateral completed [address] [facility] [address], [place], [address], 12/22/2019 12:04:39 12/05/2019 DEXA completed [email or web address] Information no t available 01/07/2020 12:36:42 12/21/2020 MAMMO, screening, bilateral completed [email or web address] [facility] [address], [place], [address], 12/24/2020 17:16:17 12/22/2021 MAMMO, screening, bilateral completed [email or web address] [facility] [address], [place], [address], 12/25/2023 09:59:51 Procedure Notes None recorded. Medical Equipment None Reported. Allergies No known drug allergies Medications Name Sig Start Date Stop Date Status Note LastModified by Organization Details LastModified Time cyclobenz aprine 10 mg tablet TAKE 1 TABLET BY MOUTH THREE TIMES A DAY active Not Available Not Available No t Available rabeprazo le 20 mg tablet,de martinaed release TAKE 1 TABLET BY MOUTH ONCE DAILY. DO NOT CRUSH, CHEW, AND/OR DIVIDE active Not Available Not Available No t Available atorvasta tin 10 mg tablet take 1 tablet by oral route every day 12/02 completed Prescrib ed Elsewher e: Yes [facility] By: amsotero Miner ncounter DateTime : 11/16/19 16 10:30:00 AM Not Available Not Available Not Available azithromy doroteo 250 mg tablet TAKE 2 TABLETS BY MOUTH TODAY, THEN TAKE 1 TABLET DAILY FOR 4 DAYS DIRECTED 12/24 completed Not Available Not Available Not Available clobetaso l 0.05 % topical cream apply by topical route every day a thin layer to the affected area(s) 12/02 completed Prescrib ed Elsewher e: No Locat ion: Sung [facility] odify By: amkdominik Miner ncounter DateTime : 11/16/19 16 10:30:00 AM Not Available Not Available Not Available acetamino phen 300 mg-codein e 30 mg tablet TAKE 1 TABLET ORALLY TWICE A DAY NEEDED FOR PAIN active Not Available Not Available No t Available Synthroid 25 mcg tablet take 1 tablet by oral route every day 12/02 completed Prescrib ed Elsewher e: No Locat ion: Sung miner [facility] odify By: amsotero palmaunter DateTime : 12/14/19 18 10:03:06 AM Not Available Not Available Not Available Tylenol 325 mg tablet take 1 tablet by oral route every 4 hours as needed active Prescrib ed Elsewher e: Yes Loca tion: [facility] odify By: darlin Miner ncounter DateTime : 11/16/19 16 10:30:00 AM Not Available Not Available Not Available azelastin e 137 mcg (0.1 %) nasal spray 1 SPRAY INTRANAS ALLY EVERY 12 HOURS active Not Available Not Available No t Available estradiol 0.01% (0.1 mg/gram) vaginal cream active Not Available Not Available Not Available methylpre dnisolone 4 mg tablets in a dose pack TAKE 6 TABLETS ON DAY 1 DIRECTED ON PACKAGE AND DECREASE BY 1 TAB EACH DAY FOR A TOTAL OF 6 DAYS 12/24 completed Not Available Not Available Not Available albuterol sulfate HFA 90 mcg/actua tion aerosol inhaler INHALE 2 PUFFS EVERY 4 HOURS NEEDED FOR WHEEZE OR FOR SHORTNES S OF BREATH active Not Available Not Available No t Available sertralin e 20 mg/mL oral concentra te take 2.5 millilit er by oral route every day and mix with 4 oz. (1/2 cup) of water, keshav rolando, lemon/li me soda, lemonade or orange juice ONLY 12/02 completed Prescrib ed Elsewher e: Yes Loca tion: Felipatadeomaria teresa miner [facility] odify By: laura Miner ncounter DateTime : 11/16/19 16 10:30:00 AM Not Available Not Available Not Available lisinopri l 2.5 mg tablet take 1 tablet by oral route every day 12/24 completed Prescrib ed Elsewher e: Yes Loca tion: Felipamarta royce [facility] odify By: darlin palmaunter DateTime : 11/16/19 16 10:30:00 AM Not Available Not Available Not Available ezetimibe 10 mg tablet TAKE 1 TABLET BY MOUTH EVERY DAY active Not Available Not Available No t Available Premarin 0.625 mg/gram vaginal cream Insert 1 g twice a week by vaginal route at bedtime. 2023 active Not Available Not Available Not Avai lable Riomet 500 mg/5 mL oral solution take 10 millilit er by oral route 2 times every day with meals 12/02 completed Prescrib ed Elsewher e: Yes [facility] By: laura Miner ncounter DateTime : 11/16/19 16 10:30:00 AM Not Available Not Available Not Available lisinopri l 12/20 completed Not Available Not Available Not Available Tylenol 12/20 completed Not Available Not Available Not Available AcipHex 12/20 completed Not Available Not Available Not Available cyclobenz aprine 7.5 mg tablet take 1 tablet by oral route 3 times every day 12/20 completed Prescrib ed Elsewher e: Yes Loca tion: Sung [facility] odify By: darlin palmaunter DateTime : 11/16/19 10:30:00 AM Not Available Not Available Not Available Vagifem 10 mcg vaginal tablet Insert 1 tablet twice a week by vaginal route at bedtime for 30 days. 2023 active Not Available Not Available Not Avai lable OneTouch Verio test strips USE 1 STRIP DAILY DIRECTED active Not Available Not Available No t Available Vitals Date Recorded Body height Body mass index (BMI) Body weight Provider Name and Address Organization Details Last Updated DateTime 12/20/2020 155.58 cm 27.9 kg/m2 34937.26 g Margie Pettit [facility] 12/20/2020 10:13:52 Date Recorded Systolic blood pressure Diastolic blood pressure Provider Name and Address Organization Details Last Updated DateTime 12/20/2020 134 mm[Hg] 72 mm[Hg] Maren Steiner [facility] [address], [place], [address], [facility] 12/20/2020 10:30:14 Date Recorded Body height Body mass index (BMI) Body weight Provider Name and Address Organization Details Last Updated DateTime 12/22/2021 156.21 cm 27.5 kg/m2 84352.67 g Sweetie Maldonado [facility] 12/22/2021 12:01:46 Date Recorded Systolic blood pressure Diastolic blood pressure Provider Name and Address Organization Details Last Updated DateTime 12/22/2021 128 mm[Hg] 78 mm[Hg] Maren Steiner [facility] [address], [place], [address], [facility] 12/22/2021 12:29:07 Date Recorded Body height Body mass index (BMI) Body weight Systolic blood pressure Diastolic blood pressure Provider Name and Address Organization Details Last Updated DateTime 12/25/2023 156.21 cm 29.2 kg/m2 17253 g 151 mm[Hg] 78 mm[Hg] Margie Pettit [facility] 09:56:41 Date Recorded Body weight Systolic blood pressure Diastolic blood pressure Provider Name and Address Organization Details Last Updated DateTime 12/05/2019 12104.86 g 136 mm[Hg] 81 mm[Hg] Deanne Escobar [facility] 12/05/2019 10:18:10 Social History Question Answer Notes LastModified by Organizat ion Details LastModified Time Tobacco Smoking Status Never Smoker Sweetie Maldonado [email or web address], [facility] 12/22/2021 12:01:57 Do You Have An Advance Directive? No [email or web address] Information n ot available 12/20/2020 What Is Your Level Of Alcohol Consumption? Occasional Information not available 12/20/2020 Are You Blind Or Do You Have Difficulty Seeing? No [email or web address] Information n ot available 12/20/2020 What Is Your Level Of Caffeine Consumption? Occasional Information not available 12/20/2020 In The 14 Days Before Symptom Onset, Have You Had Close Contact With A Laboratory-confirm ed COVID-19 While That Case Was Ill? No Information n ot available 12/20/2020 In The 14 Days Before Symptom Onset, Have You Had Close Contact With A Person Who Is Under Investigation For COVID-19 While That Person Was Ill? No [email or web address] Information not available 12/20/2020 Have You Been To An Area Known To Be High Risk For COVID-19? No [email or web address] Information not available 12/20/2020 Are You Currently Employed? No [email or web address] Information not available 12/25/2023 Are You Deaf Or Do You Have Serious Difficulty Hearing? No [email or web address] Information not available 12/20/2020 What Type Of Diet Are You Following? REGULAR [email or web address] Information n ot available 12/20/2020 What Is The Highest Grade Or Level Of School You Have Completed Or The Highest Degree You Have Received? [id number] Information not available 12/20/2020 What Is Your Occupation? Retired Information not available 12/22/2021 Have You Ever Been Counseled For Unhealthy Alcohol Use? No [email or web address] Information not available 12/25/2023 Do You Use Protection During Sex? No [email or web address] Information not available 12/20/2020 Do You Use Your Seat Belt Or Car Seat Routinely? Yes [email or web address] Information not available 12/20/2020 Do You Have Smoke And Carbon Monoxide Detectors In Your Home? Yes Information not available 12/20/2020 How Much Tobacco Do You Smoke? No [email or web address] Information not available 12/20/2020 Do You Feel Stressed (tense, Restless, Nervous, Or Anxious, Or Unable To Sleep At Night)? [id number] [email or web address] Information not available 12/20/2020 Do You Use Any Illicit Or Recreational Drugs? No [email or web address] Information not available 12/20/2020 Do You Use Sunscreen Routinely? Yes [email or web address] Information not available 12/25/2023 Has Tobacco Cessation Counseling Been Provided? No [email or web address] Information not available 12/25/2023 Have You Used IV Drugs? No [email or web address] Information not available 12/20/2020 Do You Or Have You Ever Used Any Other Forms Of Tobacco Or Nicotine? No [email or web address] Information not available 12/25/2023 Sex: Unknown Functional Status Question Answer Note LastModified by Organizat ion Details LastModified Time Do you have difficulty walking or climbing stairs? No Information not available 12/22/2021 Are you able to walk? YESWOREST [email or web address] Information not available 12/20/2020 Are you able to care for yourself? Yes Information not available 12/22/2021 Do you have difficulty dressing or bathing? No Information not available 12/22/2021 What is your exercise level? Occasional [email or web address] Information not available 12/20/2020 Mental Status None recorded. Family History Relationship Description Onset Age of this Age Resolved Age Notes LastModified by Organization Details LastModified Time Mother Malignant tumor of lung [email or web address] Not available 2019 11:21:14 Mother Hypertensive disorder [email or web address] Not available 2019 11:21:49 Mother Disorder of thyroid gland [email or web address] Not available 2019 11:22:03 Paternal Uncle Malignant tumor of lung [email or web address] Not available 2019 11:21:14 Paternal Aunt Malignant tumor of lung [email or web address] Not available 2019 11:21:14 Paternal Aunt Carcinoma in situ of breast 50 [email or web address] Not available 2021 11:31:17 Father Hypertensive disorder [email or web address] Not available 2019 11:21:49 Father Diabetes mellitus [email or web address] Not available 2019 11:22:49 Father Heart disease [email or web address] Not available 2019 11:23:22 Paternal Grandmother Hypertensive disorder [email or web address] Not available 2019 11:21:49 Paternal Grandmother Diabetes mellitus [email or web address] Not available 2019 11:22:49 Paternal Grandmother Heart disease [email or web address] Not available 2019 11:23:22 Brother Hypertensive disorder [email or web address] Not available 2019 11:21:49 Brother Diabetes mellitus [email or web address] Not available 2019 11:22:49 Brother Heart disease [email or web address] Not available 2019 11:23:22 Maternal Grandmother Diabetes mellitus [email or web address] Not available 2019 11:22:49 Maternal Grandmother Coronary artery disease absent [email or web address] Not available 2021 11:31:17 Maternal Grandmother Heart disease [email or web address] Not available 12/23 12:43:46 Maternal Uncle Diabetes mellitus [email or web address] Not available 2019 11:22:49 Maternal Uncle Heart disease [email or web address] Not available 2019 11:23:22 Maternal Aunt Diabetes mellitus [email or web address] Not available 2019 11:22:49 Maternal Aunt Psychotic disorder [email or web address] Not available 2021 11:31:17 Unspecified Relation Carcinoma in situ of breast 35 COUSIN [email or web address] Not available 2021 11:31:17 Unspecified Relation Malignant lymphoma 30 NEPHEW [email or web address] Not available 2021 11:31:17 Medical History Condition Response Other N Blood Transfusion N Dermatologic Disorders N Gestational Diabetes N Anxiety Disorder Y Autoimmune disease N Arthritis N Polyps N Infertility N Acid Reflux (GERD) Y Cancer N Varicosities N Stroke N Neurologic/Epilepsy N Fibromyalgia N Headaches N Kidney Disease N Heart Problems N Kidney or Bladder Problems N Eating Disorder N Art (IVF or FET) N Hepatitis/Liver Disease N No Past Medical History N Urinary Tract Infection N Asthma Y Trauma/Violence N Thrombophilias N Allergies (Food, seasonal, environmental ) Y Breast Cancer N Drug/Latex Allergies/Reactions N Lung Disease N Defects or Inherited Disease N Breast Problem Y Hematologic disorders N Anesthesia Complications N History of STI N Deep Vein Thrombosis N Polycystic ovary syndrome N History of abnormal pap N Endometriosis N High Cholesterol Y Thyroid Problems N GI Problems N Anemia N Psychiatric Illness Y Ovarian Cancer N Diabetes Y Pulmonary (TB, Asthma) N Eczema N Abuse/Domestic Violence N Depression/ depression Y Heart Disease N Pre-Eclampsia N Hypertension Y Osteoporosis Y Gynecological History Statement/Question Response Date of Last Mammogram Date of LMP 12/29/2007 On BCP's at Conception? N N STIs/STDs N HPV Vaccine N Current Control Method Menopause Age at First Child 26 If Post Menopausal, Age at Menopause 52 Date of DEXA bone scan Age of first menstrual cycle 15 Date of Last Pap Smear 12/05/2019 Sexual Problems? N LMP Approximate N Obstetrics History GPAL:G 3 P 2 0 1 2 Type Value Full Term 2 Spontaneous 1 Living 2 Total 3 Past Encounters Encounter ID Performer Location Encounter Start Date Encounter Closed Date Diagnosis/Indication Diagnosis SNOMED-CT Code Diagnosis ICD10 Code Diagnosis Note [id number] Maren Steiner , [facility] [address] [address] 12/05/2019 10:11:47 12/05/2019 10:36:36 Routine gynecologic examination done 8600735398 9101 Z01.419 Take Calcium with Vitamin D 12-1500mg daily. Do monthly self breast exams. It is advised to get annual flu shot in the fall and she could obtain at [facility] or [facility] care clinic. If you haven't received the Tdap vaccine in the last 10 years you should obtain one as well. Have mammogram yearly, bone density every 2-3 years and colonoscop y every 5-10 years depending on findings and history. Engage in daily exercise of low impact aerobic exercise 45-60 minutes 4-5 times weekly. Avoid tobacco and illicit drugs as well as using moderation with alcohol intake less than 1-2 8 oz beverages daily. This lifestyle behavior pattern will lead to less health conditions and longer life span. If BMI greater than 25 weight watchers or dietary consult advised. Questions have been answered. Patient appears to understand instructio ns, but if you have any further questions call or respond to this email Pap/HPV sent STD declined Mammo completed awaiting results DEXA completed awaiting results CBE done Colonoscop y managed by GI/PCP. [id number] Maren Steiner , [facility] [address],[place] [address] 12/20/2020 09:40:19 12/20/2020 10:36:08 Gynecologic examination 17687396 Z01.419 Take Calcium with Vitamin D 12-1500mg daily. Do monthly self breast exams. It is advised to get annual flu shot in the fall and she could obtain at [facility] or [facility]. If you haven't received the Tdap vaccine in the last 10 years you should obtain one as well. Have mammogram yearly, bone density every 2-3 years and colonoscop y every 5-10 years depending on findings and history. Engage in daily exercise of low impact aerobic exercise 45-60 minutes 4-5 times weekly. Avoid tobacco and illicit drugs as well as using moderation with alcohol intake less than 1-2 8 oz beverages daily. This lifestyle behavior pattern will lead to less health conditions and longer life span. If BMI greater than 25 weight watchers or dietary consult advised. Questions have been answered. Patient appears to understand instructio ns, but if you have any further questions call or respond to this email Pap/hpv due 2021 USPSTF recommends against screening for cervical cancer in women older than 65yo who have had adequate prior screening & are not otherwise at high risk for cervical cancer. Colon referred Dexa UTD per pt No issues or concerns Screening for malignant neoplasm of colon [id number] Z12.11 [id number] Maren Steiner , [facility] [address] [address] 12/22/2021 11:29:20 12/22/2021 12:32:53 Gynecologic examination 87298380 Z01.419 Take Calcium with Vitamin D 12-1500mg daily. Do monthly self breast exams. It is advised to get annual flu shot in the fall and she could obtain at [facility] or [facility]. If you haven't received the Tdap vaccine in the last 10 years you should obtain one as well. Have mammogram yearly, bone density every 2-3 years and colonoscop y every 5-10 years depending on findings and history. Engage in daily exercise of low impact aerobic exercise 45-60 minutes 4-5 times weekly. Avoid tobacco and illicit drugs as well as using moderation with alcohol intake less than 1-2 8 oz beverages daily. This lifestyle behavior pattern will lead to less health conditions and longer life span. If BMI greater than 25 weight watchers or dietary consult advised. Questions have been answered. Patient appears to understand instructio ns, but if you have any further questions call or respond to this emailPap/h pv due age 66yo STD Screen declined Genetic Screen discussed Colon Screen UTD PCP Dexa Screen UTD PCP Routine Labs UTD PCPMammo ordered [id number] Maren Steiner , [facility] [address] [address] 12/25/2023 09:42:52 12/25/2023 10:12:46 Gynecologic examination 14702372 Z01.419 Take Calcium with Vitamin D 12-1500mg daily. Do monthly self breast exams. It is advised to get annual flu shot in the fall and she could obtain at [facility] or [facility] care clinic. If you haven't received the Tdap vaccine in the last 10 years you should obtain one as well. Have mammogram yearly, bone density every 2-3 years and colonoscop y every 5-10 years depending on findings and history. Engage in daily exercise of low impact aerobic exercise 45-60 minutes 4-5 times weekly. Avoid tobacco and illicit drugs as well as using moderation with alcohol intake less than 1-2 8 oz beverages daily. This lifestyle behavior pattern will lead to less health conditions and longer life span. If BMI greater than 25 weight watchers or dietary consult advised. Questions have been answered. Patient appears to understand instructio ns, but if you have any further questions call or respond to this emailPap/h pv due age 66yoSTD Screen declinedGe netic Screen discussedC olon Screen UTD PCPDexa Screen UTD PCPRoutine Labs UTD PCPMammo ordered Screening mammography 24 237388 Z12.31 Dyspareunia 10874834 N94 .10 Due to postmenopa usal changesTri al of vagifem 10mcg.Has previously used.Instr ucted to call if any issues/not responding as expected x 3mos.Rec daily moisturizi ng as instructed . Counseled on the following: Vaginal Dryness: Bothersome symptoms of the vagina and vulva (outer lips of the vagina) increase during and after the menopause transition or may start several years after menopause. The decrease in estrogen with menopause is a major contributo r to vaginal dryness, itching, burning, discomfort , and pain during intercours e or other sexual activity. Vaginal atrophy is the medical term that describes these changes. The genitourin deepak syndrome of menopause includes bothersome vaginal atrophy often combined with urinary symptoms. Vaginal atrophy may significan tly affect your quality of life, sexual satisfacti on, and relationsh ip with your partner. Unlike hot flashes, which generally improve with time, vaginal symptoms typically worsen with time because of aging and a prolonged lack of estrogen. Vaginal estrogen therapy ? ? An effective and safe treatment, low-dose local estrogen is applied directly to the vagina to restore vaginal health and relieve vaginal dryness and discomfort with sexual activity. Improvemen ts usually occur within a few weeks, although complete relief may take several months. This even may be an option for women with a history of breast or uterine cancer but only after careful considerat ion of risks and benefits with a healthcare provider and oncologist . ? ? Governmen t-approved low-dose vaginal estrogen products are available by prescripti on as vaginal creams (used two or three nights/wee k), a vaginal estradiol tablet (used twice/week ), and an estradiol vaginal ring (changed every 3 months). All are highly effective. You may wish to try several different forms and choose the one you prefer. ? ? Standard doses of estrogen therapy provided to treat hot flashes also treat vaginal dryness, although some women still benefit from additional low-dose vaginal estrogen treatment. If only vaginal symptoms are present, low doses of estrogen applied to the vagina are recommende d. Resources: https://ww w.[employer].org/docs /default-s ource/for- women/mn-v aginal-dry ness.pdf Health Concerns Section Related Observation LastModified by Organization Ramu cabral LastModified Time None Recorded Concern Status LastModified by Organization Details LastModified Time None Recorded Advance Directives Directive N: Payers Encounter Date Sequence Insurance Name Policy Number Policy Canas Covered Member ID Canas Member ID Guarantor Name 12/05/2019 1 [employer] (MEDICARE REPLACEMENT HMO) [id number] Lizz Morin [id number] Lizz Mikel 12/20/2020 1 [employer] (O) [id number] Lizz R Mikel [id number] Lizz Mikel 12/22/2021 1 [employer] [id number] Lizz R Mikel [id number] Lizz Kearney 12/25/2023 1 [employer] [id number] Lizz R Mikel [id number] Lizz Mikel Notes Date Note Type Note Provider Name and Address Organization Details Recorded Time 12/20/2020 text/html Annual Manager Meeting Post-MenopausalRe ported bypatient.Menopau amilcar Symptoms:no menopausal symptoms; normal vaginal lubrication Vaginal Bleeding:history of menopause having occurred; no history of post menopausal bleeding Urinary Symptoms:no hematuria; no incontinence; no nocturia; no urinary frequency Vulva:no genital lesion; no vulvar atrophy Vagina:normal vaginal discharge; no vaginal atrophy Breast:no breast lump; no nipple discharge; no breast pain Sexual Complaints:no sexual complaints Psychological Symptoms:no depression; no anxiety Preventive Measures:encourag e regular mammograms starting age 40; encourage self breast examination; encourage regular exercise; encourage no tobacco use; needs to schedule mammogram; needs to schedule colonoscopy; Dexa 2020 per pt Osteopenia [facility] [address], [place], [address], [facility] 12/20/2020 10:30:49 12/22/2021 text/html Annual Manager Meeting Post-MenopausalRe ported bypatient.Menopau amilcar Symptoms:no menopausal symptoms; normal vaginal lubrication Vaginal Bleeding:history of menopause having occurred; no history of post menopausal bleeding Urinary Symptoms:no hematuria; no incontinence; no nocturia; no urinary frequency Vulva:no genital lesion; no vulvar atrophy Vagina:normal vaginal discharge; no vaginal atrophy Breast:no breast lump; no nipple discharge; no breast pain Sexual Complaints:no sexual complaints Psychological Symptoms:no depression; no anxiety Preventive Measures:encourag e regular mammograms starting age 40; encourage self breast examination; encourage regular exercise; encourage no tobacco use; needs to schedule mammogram; needs to schedule colonoscopy (Has this scheduled with PCP); needs to schedule bone density (Scheduled by PCP) [facility] [address], [place], [address], [facility] 12/22/2021 12:31:35 12/25/2023 text/html Annual Manager Meeting Post-MenopausalRe ported bypatient.Carri amilcar Symptoms:no menopausal symptoms;inadequa cy of lubrication of vaginal mucosa Vaginal Bleeding:history of menopause having occurred; no history of post menopausal bleeding Urinary Symptoms:no hematuria; no incontinence; no nocturia; no urinary frequency Vulva:no genital lesion;atrophic vulva Vagina:normal vaginal discharge; no vaginal atrophy Breast:no breast lump; no nipple discharge; no breast pain Sexual Complaints:no sexual complaints Psychological Symptoms:no depression; no anxiety Preventive Measures:encourag e regular mammograms starting age 40; encourage self breast examination; encourage regular exercise; encourage no tobacco use; needs to schedule mammogram; history of recent colonoscopy; needs to schedule bone density (Rx by PCP) [facility] [address], [place], [address], [facility] 12/25/2023 10:11:59 OBGyn Episode Ob Episode Information Episode Created Date Number of Fetuses Patient Bloodtype Patient rh Status Prepregnancy Weight lbs Domestic Partner Domestic Partner Phone Father Name Manager Plant Status 12/05/19 20 1 CLOSED Fetus Data First Name Last Name Admitted to NICU Weight (g) Sex Living Outcome Pediatric Complications Fetus ID Race Codes Race Delivery Type 3883.65 [id number] F Full Term 1023 V Back Tor Calculation Initial Tor Date Initial Exam Date Initial Exam Provider Initial Ultrasound Date Last Menstrual Period Date Ultra Sound Weeks Gestation 0 Eighteen To Twenty Week Tor Update Ultra Sound Date Fundal Height At Umbil Quickening Date Ultra Sound Latest Weeks Gestation Final Tor Confirmed By Final Tor Confirmed Date Final Tor Date Ultra Sound Latest Days Gestation 0 0 Menstrual History Last Menstrual Date Menses Monthly On Bcp Conception Prior Menses Frequency Hcg Plus Date Menarche Onset Age Delivery Information Delivery Date Delivery Type Labor Anesthesia Weeks Gestation Incision Type Labor Labor Length Hrs Delivered By Post Complications Tubal Sterilization Discharge Date Comments 8 42 Discharge Information Feeding Method Contraceptive Method Maternal HG B and HCT Levels Ob Episode Information Episode Created Date Number of Fetuses Patient Bloodtype Patient rh Status Prepregnancy Weight lbs Domestic Partner Domestic Partner Phone Father Name Manager Plant Status 12/05/19 20 1 CLOSED Fetus Data First Name Last Name Admitted to NICU Weight (g) Sex Living Outcome Pediatric Complications Fetus ID Race Codes Race Delivery Type 3685.43 5 M Full Term 1022 Primary Tor Calculation Initial Tor Date Initial Exam Date Initial Exam Provider Initial Ultrasound Date Last Menstrual Period Date Ultra Sound Weeks Gestation 0 Eighteen To Twenty Week Tor Update Ultra Sound Date Fundal Height At Umbil Quickening Date Ultra Sound Latest Weeks Gestation Final Tor Confirmed By Final Tor Confirmed Date Final Tor Date Ultra Sound Latest Days Gestation 0 0 Menstrual History Last Menstrual Date Menses Monthly On Bcp Conception Prior Menses Frequency Hcg Plus Date Menarche Onset Age Delivery Information Delivery Date Delivery Type Labor Anesthesia Weeks Gestation Incision Type Labor Labor Length Hrs Delivered By Post Complications Tubal Sterilization Discharge Date Comments 2 40 Discharge Information Feeding Method Contraceptive Method Maternal HG B and HCT Levels Ob Episode Information Episode Created Date Number of Fetuses Patient Bloodtype Patient rh Status Prepregnancy Weight lbs Domestic Partner Domestic Partner Phone Father Name Manager Plant Status 12/24/19 21 1 CLOSED Fetus Data First Name Last Name Admitted to NICU Weight (g) Sex Living Outcome Pediatric Complications Fetus ID Race Codes Race Delivery Type , Spontane ous [id number] Tor Calculation Initial Tor Date Initial Exam Date Initial Exam Provider Initial Ultrasound Date Last Menstrual Period Date Ultra Sound Weeks Gestation 0 Eighteen To Twenty Week Tor Update Ultra Sound Date Fundal Height At Umbil Quickening Date Ultra Sound Latest Weeks Gestation Final Tor Confirmed By Final Tor Confirmed Date Final Tor Date Ultra Sound Latest Days Gestation 0 0 Menstrual History Last Menstrual Date Menses Monthly On Bcp Conception Prior Menses Frequency Hcg Plus Date Menarche Onset Age Delivery Information Delivery Date Delivery Type Labor Anesthesia Weeks Gestation Incision Type Labor Labor Length Hrs Delivered By Post Complications Tubal Sterilization Discharge Date Comments 4 Discharge Information Feeding Method Contraceptive Method Maternal HG B and HCT Levels
--- NOTE | 2024-08-29 23:00 | PC.NURSE ---
pt states they called and would like to go home. no resp. distress noted. symptoms warranting a return to the ED were discussed and all questions answered.
== END 2024-08-30 00:34 | disposition left against medical advice (07) ==
PROVIDERS: PCP Family Medicine
DX: R25.8 Other abnormal involuntary movements (principal)
CPT/HCPCS: 99199

== ENCOUNTER 2024-12-09 08:38 | Outpatient (CLI) | payer MEDICARE, SELFPAY ==
--- OUTSIDE RECORDS SUMMARY | 2024-12-09 08:58 | XMS_ITS | Data Portability ---
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 Patient will come back in a year unless there are new symptoms. [email or web address] Not available 12/05/2019 10:17:46 12/20/2020 12/20/2020 Annual gynecological exam performed. Patient will come back in a year unless there are new symptoms. [email or web address] Not available 12/20/2020 10:12:25 12/22/2021 12/22/2021 Annual gynecological exam performed. Patient will come back in a year unless there are new symptoms. Not available 12/22/2021 12:01:24 12/25/2023 12/25/2023 Annual gynecological exam performed. Patient will come back in a year unless there are new symptoms. [email or web address] Not available 12/25/2023 09:56:22 Plan of Treatment Reminders Order Date Submit Date Provider Last Modified By Organization Details Last Modified Time Details Appointments None recorded. Lab None recorded. Referral gastroenter ologist referral - Lizz has seen Dr. Hollis in the past and prefers to see him, if possible 2020 021 [email or web address] [facility], [address], [id number], [place], [address], 14:44:11 Procedures None recorded. Surgeries None recorded. Imaging MAMMO, screening, bilateral 2023 024 [email or web address] [facility], [address], [address] [address], [place], [address], 4 10:23:50 Medication Orders Vagifem 10 mcg vaginal tablet 2023 024 [facility] #[id number], [address] [place], [address], 4 10:09:30 Patient TargetsNo targets recorded. 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 Hollis in the past and prefers to see him, if possible Referring Physician: Maren Steiner, PROGRESS CLERK, Encounter Date: 12/20/2020 Results Created Date Observation [...] labor atory findi ngs. See https ://ww [employer]. Atticous/s ites/ defau lt/fi les/2 018-0 3/AW- 15757 _002_ 01.pd f for carter tirado. Test perfo rmed by [facility] d/b/a [facility], [address], [place] [address] , Lauren Carmen ra, DO, [facility]. Not Available [facility] ([facility]) [address] [place] [address] [address], [place], [address], 12/08/2019 09:15:35 07/26/20 20 07/27/2020 CBC w/ auto diff WBC 5.8 K/uL 3.8-11 .5 Not Available [facility] ([facility]) [address] [place] [address] [address], [place], [address], 07/27/2020 09:13:38 07/26/2007/27/2020 CBC w/ auto diff red blood cell count (RBC) 4.42 M/mm3 3.60-5 .30 Not Available [facility] ([facility]) [address] [place] [address] [address], [place], [address], 07/27/2020 09:13:38 07/26/20 20 07/27/2020 CBC w/ auto diff hemoglobin (HGB) 14.2 gm/dL 11.5-1 5.5 Not Available [facility] ([facility]) [address] [place] [address] [address], [place], [address], 07/27/2020 09:13:38 07/26/20 20 07/27/2020 CBC w/ auto diff hematocrit (HCT) 41.5 % 35.2-4 6.4 Not Available [facility] ([facility]) [address] [place] [address] [address], [place], [address], 07/27/2020 09:13:38 07/26/2007/27/2020 CBC w/ auto diff MCV 93.9 fL 79.0-9 9.0 Not Available [facility] ([facility]) [address] [place] [address] [address], [place], [address], 07/27/2020 09:13:38 07/26/20 20 07/27/2020 CBC w/ auto diff MCH 32.1 pg 26.9-3 5.0 Not Available [facility] ([facility]) [address] [place] [address] [address], [place], [address], 07/27/2020 09:13:38 07/26/20 20 07/27/2020 CBC w/ auto diff MCHC 34.2 g/dL 30.4-3 4.8 Not Available [facility] ([facility]) [address] [place] [address], [place], [address], 07/27/2020 09:13:38 07/26/20 20 07/27/2020 CBC w/ auto diff RDW 45.8 fL 38.6-5 3.8 Not Available [facility] ([facility]) [address] [place] [address] [address], [place], [address], 07/27/2020 09:13:38 07/26/20 20 07/27/2020 CBC w/ auto diff platelet count 375 K/cum m 137-39 7 Not Available [facility] ([facility]) [address] [place] [address] [address], [place], [address], 07/27/2020 09:13:38 07/26/20 20 07/27/2020 CBC w/ auto diff neutrophils automated 52.4 % 41.0-7 7.0 Not Available [facility] ([facility]) [address] [place] [address] [address], [place], [address], 07/27/2020 09:13:38 07/26/20 20 07/27/2020 CBC w/ auto diff lymphocytes automated 37.6 % 14.0-4 8.0 Not Available [facility] ([facility]) [address] [place] [address] [address], [place], [address], 07/27/2020 09:13:38 12/21/20 20 07/27/2020 CBC w/ auto diff monocytes automated 7.8 % 4.0-13 .0 Not Available [facility] ([facility]) [address] [place] [address] [address], [place], [address], 07/27/2020 09:13:38 07/26/20 20 07/27/2020 CBC w/ auto diff eosinophils automated 1.7 % 0.0-8. 0 Not Available [facility] ([facility]) [address] [place] [address] [address], [place], [address], 07/27/2020 09:13:38 07/26/2007/27/2020 CBC w/ auto diff basophils automated 0.3 % 0.0-1. 5 Not Available [facility] ([facility]) [address] [place] [address] [address], [place], [address], 07/27/2020 09:13:38 07/26/20 20 07/27/2020 CBC w/ auto diff immature granulocyte automated 0.2 % 0.0-1. 0 Not Available [facility] ([facility]) [address] [place] [address] [address], [place], [address], 07/27/2020 09:13:38 07/26/20 20 07/27/2020 CMP, serum or plasm a sodium 140 mEq/L 135-14 5 Not Available [facility] ([facility]) [address] [place] [address] [address], [place], [address], 07/27/2020 09:13:39 07/26/20 20 07/27/2020 CMP, serum or plasm a potassium 5.0 mEq/L 3.5-5. 3 Not Available [facility] ([facility]) [address] [place] [address] [address], [place], [address], 07/27/2020 09:13:39 07/26/20 20 07/27/2020 CMP, serum or plasm a chloride 101 mEq/L 97-108 Not Available [facility] ([facility]) [address] [place] [address] [address], [place], [address], 07/27/2020 09:13:39 07/26/20 20 07/27/2020 CMP, serum or plasm a CO2 28 mEq/L 22-32 Not Available [facility] ([facility]) [address] [place] [address] [address], [place], [address], 07/27/2020 09:13:39 07/26/20 20 07/27/2020 CMP, serum or plasm a glucose 108 mg/dL 65-99 high Not Available [facility] ([facility]) [address] [place] [address] [address], [place], [address], 07/27/2020 09:13:39 07/26/20 20 07/27/2020 CMP, serum or plasm a BUN 15 mg/dL 8-23 Not Available [facility] ([facility]) [address] [place] [address] [address], [place], [address], 07/27/2020 09:13:39 07/26/20 20 07/27/2020 CMP, serum or plasm a creatinine 0.93 mg/dL 0.50-1 .00 Not Available [facility] ([facility]) [address] [place] [address] [address], [place], [address], 07/27/2020 09:13:39 07/26/20 20 07/27/2020 CMP, serum or plasm a calcium 9.9 mg/dL 8.6-10 .4 Not Available [facility] ([facility]) [address] [place] [address] [address], [place], [address], 07/27/2020 09:13:39 07/26/20 20 07/27/2020 CMP, serum or plasm a protein 7.4 g/dL 6.0-8. 3 Not Available [facility] ([facility]) [address] [place] [address] [address], [place], [address], 07/27/2020 09:13:39 07/26/20 20 07/27/2020 CMP, serum or plasm a albumin 4.8 g/dL 3.5-5. 3 Not Available [facility] ([facility]) [address] [place] [address] [address], [place], [address], 07/27/2020 09:13:39 07/26/2007/27/2020 CMP, serum or plasm a alkaline phosphatase 75 IU/L 35-121 Not Available [facility] ([facility]) [address] [place] [address] [address], [place], [address], 07/27/2020 09:13:39 07/26/20 20 07/27/2020 CMP, serum or plasm a ALT (SGPT) 13 IU/L <5-47 Not Available [facility] ([facility]) [address] [place] [address] [address], [place], [address], 07/27/2020 09:13:39 07/26/20 20 07/27/2020 CMP, serum or plasm a AST (SGOT) 17 IU/L <5-40 Not Available [facility] ([facility]) [address] [place] [address] [address], [place], [address], 07/27/2020 09:13:39 07/26/2007/27/2020 CMP, serum or plasm a bilirubin, total 0.4 mg/dL <0.2-1 .2 Not Available [facility] ([facility]) [address] [place] [address] [address], [place], [address], 07/27/2020 09:13:39 07/26/20 20 07/27/2020 CMP, serum or plasm a A/G ratio 1.8 mg/dL 1.1-2. 5 Not Available [facility] ([facility]) [address], [place], [address], 07/27/2020 09:13:39 07/26/20 20 07/27/2020 GFR, estim ated (eGFR ), serum estimated GFR (black) 76 mL/mi n/1.7 3m2 >59 Not Available [facility] ([facility]) [address] [facility], [place], [address], 07/27/2020 09:13:39 07/26/20 20 07/27/2020 GFR, estim [...] muscl e mass or diet. Not Available [facility] ([facility]) [address] [facility], [place], [address], 07/27/2020 09:13:39 07/26/20 20 07/27/2020 phosp horus , serum or plasm a phosphorus 4.1 mg/dL 2.5-4. 5 Not Available [facility] ([facility]) [address] [place] [address] [address], [place], [address], 07/27/2020 09:13:40 07/26/20 20 07/27/2020 TSH, serum or plasm a TSH reflex to FT4 3.92 mU/L 0.27-4 .20 Not Available [facility] ([facility]) [address] [place] [address] [address], [place], [address], 07/27/2020 09:13:40 07/26/20 20 07/27/2020 vitam in [...] corre latio n requi red. Not Available [facility] ([facility]) [address] [place] [address] [address], [place], [address], 07/27/2020 09:13:41 12/05/19 20 12/05/2019 MAMMO , scree maylin, bilat eral No observ ation record ed. [address] (Imaging) [address] [place] [address], [address], 12/08/2019 14:35:07 12/05/19 20 12/05/2019 MAMMO , scree maylin, bilat eral No observ ation record ed. [address] (Imaging) [address] [place] [address], [address], 12/08/2019 14:35:07 12/12/19 20 MAMMO , scree maylin, bilat eral No observ ation record ed. [email or web address] Not Available 08/2019 14:20:54 12/18/19 20 12/18/2019 MAMMO , diagn ostic , digit al, bilat eral No observ ation record ed. [address] - [facility] [address], [place], [address], 12/22/2019 12:04:39 12/23/19 20 12/05/2019 DEXA No observ ation record ed. [email or web address] Not Available 2019 12:36:42 12/22/19 21 12/21/2020 MAMMO , scree maylin, bilat eral No observ ation record ed. layran [facility] [address], [place], [address], 12/24/2020 17:16:17 12/23/19 22 12/22/2021 MAMMO , scree maylin, bilat eral No observ ation record ed. [email or web address] [facility] [address], [place], [address], 12/25/2023 09:59:51 Result Notes None recorded. Problems Name Problem SNOMED Code Status Onset Date Resolution Date Notes Provider Name and Address Organization Details Recorded Time SNOMED CT Concept Completed 201712/21/2021 Encntr for general adult medical exam w/o abnormal findings; Recorded Elsewhere : No Locati on: [facility] So urce: EHR Chron ic: N Practic e ID: [id number] Bill able Time: 11:30:00 AM Sweetie huizar [facility] 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 2 17:19:56 Screenin g for malignan t neoplasm of rectum Completed 201612/21/2021 Encounter for screening for malignant neoplasm of rectum;Re corded Elsewhere : No Locati on: [facility] So urce: EHR Chron ic: N Practic e ID: [id number] Bill able Time: 09:00:00 AM Sweetie [facility] 2 17:19:56 Evaluati on finding [id number] Completed 201812/21/2021 Oth abn and inconclus gerson findings on dx imaging of breast;Re corded Elsewhere : No Locati on: [facility] So urce: EHR Chron ic: N Practic e ID: [id number] Bill able Time: 08:12:09 AM Sweetie Maldonado [facility] 2 17:19:56 Micturit ion finding Completed 201812/21/2021 Urinary incontine nce;Recor ded Elsewhere : No Locati on: [facility] So urce: EHR Chron ic: N Practic e ID: [id number] Bill able Time: 01:00:00 PM Sweetie Maldonado [facility] 2 17:19:56 Polyp of cervix [id number] Completed 201612/21/2021 Polyp of cervix uteri;Rec orded Elsewhere : No Locati on: [facility] So urce: EHR Chron ic: N Practic e ID: [id number] Bill able Time: 11:30:00 AM Sweetie [facility] 2 17:19:56 Problem Notes None recorded. Procedures Surgical History Date Name Laterality Status Provider Name and Address Organization Details Recorded Time 12/05/19 Date of Last Pap Smear completed Sweetie Maldonado [facility] 12/22/2021 12:02:17 11/29/19 17 cervical biopsy completed Margie Pettit [facility] 12/23/2020 12:47:34 08/06/19 07 Cholecystectomy completed Margie Pettit [facility] 12/23/2020 12:46:24 10/04/18 82 section completed Margie Pettit [facility] 12/23/2020 12:47:01 Imaging Results Imaging Date Name Status LastModified by Organiz ation Details LastModified Time 12/05/2019 MAMMO, screening, bilateral completed [address] (Imaging) [address] [place] [address] [place] [address], [address], 12/08/2019 14:35:07 12/05/2019 MAMMO, screening, bilateral completed [address] (Imaging) [address] [place] [address], [address], 12/08/2019 14:35:07 12/12/2019 MAMMO, screening, bilateral completed Information not available 01/05/2020 14:20:54 12/18/2019 MAMMO, diagnostic, digital, bilateral completed [address] - [facility] [address], [place], [address], 12/22/2019 12:04:39 12/05/2019 DEXA completed [email or web address] Information no t available 01/07/2020 12:36:42 12/21/2020 MAMMO, screening, [facility] [address], [place], [address], 12/24/2020 17:16:17 12/22/2021 MAMMO, screening, bilateral completed [email or web address] [facility] [address], [place], [address], 12/25/2023 09:59:51 Procedure Notes None recorded. Medical Equipment None Reported. Allergies No known drug allergies Medications Name Sig Start Date Stop Date Status Note LastModified by Organization Details LastModified Time cyclobenz aprine 10 mg tablet TAKE 1 TABLET BY MOUTH THREE TIMES A DAY active Not Available Not Available No t Available rabeprazo le 20 mg tablet,de layed release TAKE 1 TABLET BY MOUTH ONCE DAILY. DO NOT CRUSH, CHEW, AND/OR DIVIDE active Not Available Not Available No t Available atorvasta tin 10 mg tablet take 1 tablet by oral route every day 12/02 completed Prescrib ed Elsewher e: Yes [facility] By: [email or web address] Miner ncounter DateTime : [...] Prescrib ed Elsewher e: No [facility] By: amkdominik Miner ncounter DateTime : [...] ed Elsewher e: No Locat ion: [facility] odify By: amkdominik Miner ncounter DateTime : 12/14/19 18 10:03:06 AM Not Available Not Available Not Available Tylenol 325 mg tablet take 1 tablet by oral route every 4 hours as needed active Prescrib ed Elsewher e: Yes Loca tion: [facility] odify By: darlin Miner ncounter DateTime : [...] e: Yes Loca tion: Felipatadeomaria teresa miner [facility] odify By: laura Miner ncounter DateTime : 11/16/19 16 10:30:00 AM Not Available Not Available Not Available lisinopri l 2.5 mg tablet take 1 tablet by oral route every day 12/24 completed Prescrib ed Elsewher e: Yes Loca tion: Felipamarta royce [facility] odify By: darlin palmaunter DateTime : [...] Elsewher e: Yes Loca tion: Felipatadeomaria teresa [facility] odify By: laura Miner ncounter DateTime [...] ed Elsewher e: Yes Loca tion: [facility] odify By: darlin isaac DateTime : 11/16/19 10:30:00 AM Not Available [...] Updated DateTime 12/20/2020 155.58 cm 27.9 kg/m2 40328.26 g Margie Pettit [facility] 12/20/2020 10:13:52 Date Recorded Systolic blood pressure Diastolic blood pressure Provider Name and Address Organization Details Last Updated DateTime 12/20/2020 134 mm[Hg] 72 mm[Hg] Maren Steiner [facility] [address], [place], [address], [facility] 12/20/2020 10:30:14 Date Recorded Body height Body mass index (BMI) Body weight Provider Name and Address Organization Details Last Updated DateTime 12/22/2021 156.21 cm 27.5 kg/m2 63177.67 g Sweetie Maldonado [facility] 12/22/2021 12:01:46 Date Recorded Systolic blood pressure Diastolic blood pressure Provider Name and Address Organization Details Last Updated DateTime 12/22/2021 128 mm[Hg] 78 mm[Hg] Maren Steiner [facility] [address], [place], [address], [facility] 12/22/2021 12:29:07 Date Recorded Body height Body mass index (BMI) Body weight Systolic blood pressure Diastolic blood pressure Provider Name and Address Organization Details Last Updated DateTime 12/25/2023 156.21 cm 29.2 kg/m2 96730 g 151 mm[Hg] 78 mm[Hg] Margie Pettit [facility] 09:56:41 Date Recorded Body weight Systolic blood pressure Diastolic blood pressure Provider Name and Address Organization Details Last Updated DateTime 12/05/2019 31100.86 g 136 mm[Hg] 81 mm[Hg] Deanne Escobar [facility] 12/05/2019 10:18:10 Social History Question Answer Notes LastModified by Organizat ion Details LastModified Time Tobacco Smoking Status Never Smoker Sweetie Maldonado [email or web address] [facility] 12/22/2021 12:01:57 Do You Have An Advance Directive? No Information n ot available 12/20/2020 What Is Your Level Of Alcohol Consumption? Occasional Information not available 12/20/2020 Are You Blind Or Do You Have Difficulty Seeing? No [email or web address] Information n ot available 12/20/2020 What Is Your Level Of Caffeine Consumption? Occasional [email or web address] Information not available 12/20/2020 In The 14 Days Before Symptom Onset, Have You Had Close Contact With A Laboratory-confirm ed COVID-19 While That Case Was Ill? No [email or web address] Information n ot available 12/20/2020 In The 14 Days Before Symptom Onset, Have You Had Close Contact With A Person Who Is Under Investigation For COVID-19 While That Person Was Ill? No [email or web address] Information not available 12/20/2020 Have You Been To An Area Known To Be High Risk For COVID-19? No [email or web address] Information not available 12/20/2020 Are You Currently Employed? No [email or web address] Information not available 12/25/2023 Are You Deaf Or Do You Have Serious Difficulty Hearing? No [email or web address] Information not available 12/20/2020 What Type Of Diet Are You Following? REGULAR Information n ot available 12/20/2020 What Is The Highest Grade Or Level Of School You Have Completed Or The Highest Degree You Have Received? [id number] [email or web address] Information not available 12/20/2020 What Is Your Occupation? Retired Information not available 12/22/2021 Have You Ever Been Counseled For Unhealthy Alcohol Use? No [email or web address] Information not available 12/25/2023 Do You Use Protection During Sex? No [email or web address] Information not available 12/20/2020 Do You Use Your Seat Belt Or Car Seat Routinely? Yes [email or web address] Information not available 12/20/2020 Do You Have Smoke And Carbon Monoxide Detectors In Your Home? Yes [email or web address] Information not available 12/20/2020 How Much Tobacco Do You Smoke? No [email or web address] Information not available 12/20/2020 Do You Feel Stressed (tense, Restless, Nervous, Or Anxious, Or Unable To Sleep At Night)? [id number] [email or web address] Information not available 12/20/2020 Do You Use Any Illicit Or Recreational Drugs? No [email or web address] Information not available 12/20/2020 Do You Use Sunscreen Routinely? Yes [email or web address] Information not available 12/25/2023 Has Tobacco Cessation Counseling Been Provided? No [email or web address] Information not available 12/25/2023 Have You Used IV Drugs? No [email or web address] Information not available 12/20/2020 Do You Or Have You Ever Used Any Other Forms Of Tobacco Or Nicotine? No [email or web address] Information not available 12/25/2023 Sex: Unknown Functional Status Question Answer Note LastModified by Organizat ion Details LastModified Time Do you have difficulty walking or climbing stairs? No Information not available 12/22/2021 Are you able to walk? YESWOREST [email or web address] Information not available 12/20/2020 Are you able to care for yourself? Yes Information not available 12/22/2021 Do you have difficulty dressing or bathing? No Information not available 12/22/2021 What is your exercise level? Occasional [email or web address] Information not available 12/20/2020 Mental Status None recorded. Family History Relationship Description Onset Age of this Age Resolved Age Notes LastModified by Organization Details LastModified Time Mother Malignant neoplasm of lung [email or web address] Not available 2019 11:21:14 Mother Hypertensive disorder [email or web address] Not available 2019 11:21:49 Mother Disorder of thyroid gland [email or web address] Not available 2019 11:22:03 Paternal Uncle Malignant neoplasm of lung [email or web address] Not available 2019 11:21:14 Paternal Aunt Malignant neoplasm of lung [email or web address] Not available 2019 11:21:14 [...] available 2021 11:31:17 Maternal Grandmother Heart disease [email or web address] Not available 12/23 12:43:46 Maternal Uncle Diabetes [...] available 2021 11:31:17 Medical History Condition Response Allergies (Food, seasonal, environmental ) Y Other N Breast Cancer N Drug/Latex Allergies/Reactions N Blood Transfusion N Dermatologic Disorders N Lung Disease N Defects or Inherited Disease N Breast Problem Y Gestational Diabetes N Hematologic disorders N Anesthesia Complications N History of STI N Deep Vein Thrombosis N Polycystic ovary syndrome N Anxiety Disorder Y Autoimmune disease N Arthritis N Infertility N Polyps N Acid Reflux (GERD) Y History of abnormal pap N Cancer N Stroke N Varicosities N Neurologic/Epilepsy N Endometriosis N High Cholesterol Y Headaches N Fibromyalgia N Kidney Disease N Heart Problems N Kidney or Bladder Problems N Thyroid Problems N GI Problems N Eating Disorder N Anemia N Art (IVF or FET) N Psychiatric Illness Y Ovarian Cancer N Diabetes Y Pulmonary (TB, Asthma) N Hepatitis/Liver Disease N No Past Medical History N Eczema N Urinary Tract Infection N Abuse/Domestic Violence N Asthma Y Trauma/Violence N Depression/ depression Y Heart Disease N Pre-Eclampsia N Hypertension Y Osteoporosis Y Thrombophilias N Gynecological History Statement/Question Response Date of Last [...] Code Diagnosis Note [id number] Maren Steiner , [facility] [address] [address] 12/05/2019 10:11:47 12/05/2019 10:36:36 Routine gynecologic examination done [id number] Z01.419 Take Calcium with Vitamin D 12-1500mg daily. Do monthly self breast exams. It is advised to get annual flu shot in the fall and she could obtain at [facility] or [facility] care clinic. If you haven't received [...] CBE done Colonoscop y managed by GI/PCP. [id number] Maren Steiner , [facility] [address] [address] 12/20/2020 09:40:19 12/20/2020 10:36:08 Gynecologic examination [id number] Z01.419 Take Calcium with Vitamin D 12-1500mg daily. Do monthly self breast exams. It is advised to get annual flu shot in the fall and she could obtain at [facility] or [facility]. If you haven't received the Tdap vaccine [...] concerns Screening for malignant neoplasm of colon [id number] Z12.11 [id number] Maren Steiner [facility] [address] [address] 12/22/2021 11:29:20 12/22/2021 12:32:53 Gynecologic examination [id number] Z01.419 Take Calcium with Vitamin D 12-1500mg daily. Do monthly self breast exams. It is advised to get annual flu shot in the fall and she could obtain at [facility] or [facility]. If you haven't received the Tdap vaccine [...] UTD PCP Routine Labs UTD PCPMammo ordered [id number] Maren Steiner , [facility] [address] [address] 12/25/2023 09:42:52 12/25/2023 10:12:46 Gynecologic examination [id number] Z01.419 Take Calcium with Vitamin D 12-1500mg daily. Do monthly self breast exams. It is advised to get annual flu shot in the fall and she could obtain at [facility] or [facility] care clinic. If you haven't received [...] Labs UTD PCPMammo ordered Screening mammography [id number] Z12.31 Dyspareunia [id number] N94 .10 Due to postmenopa usal changesTri [...] prolonged lack of estrogen. Vaginal estrogen therapy An effective and safe treatment, low-dose local [...] with a healthcare provider and oncologist . Government -approved low-dose vaginal estrogen products are available by prescripti on as vaginal creams (used two or three nights/wee k), a vaginal estradiol tablet (used twice/week ), and an estradiol vaginal ring (changed every 3 months). All are highly effective. You may wish to try several different forms and choose the one you prefer. Standard doses of estrogen therapy provided to treat hot flashes also treat vaginal dryness, although some women still benefit from additional low-dose vaginal estrogen treatment. If only vaginal symptoms are present, low doses of estrogen applied to the vagina are recommende d. Resources: https://ww w.[employer].org/docs /default-s ource/for- women/mn-v aginal-dry ness.pdf Health Concerns Section Related Observation LastModified by Organization Ramu cabral LastModified Time None Recorded Concern Status LastModified by Organization Details LastModified Time None Recorded Advance Directives Directive N: Payers Encounter Date Sequence Insurance Name Policy Number Policy Canas Covered Member ID Canas Member ID Guarantor Name 12/05/2019 1 [employer] (MEDICARE REPLACEMENT HMO) [id number] Lizz Morin [id number] Lizz [place] 12/20/2020 1 [employer] (HMO) [id number] Lizz R Mikel [id number] Lizz [place] 12/22/2021 1 [employer] [id number] Lizz R [place] [id number] Lizz Mikel 12/25/2023 1 [employer] [id number] Lizz R Mikel [id number] Lizz Mikel Notes Date Note Type Note Provider Name and Address Organization Details Recorded Time 12/20/2020 text/html 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 12/25/2023 10:11:59 OBGyn Episode Ob Episode Information Episode Created Date Number of Fetuses Patient Bloodtype Patient rh Status Prepregnancy Weight lbs Domestic Partner Domestic Partner Phone Father Name Rn Surgery Icu Status 12/05/19 20 1 CLOSED Fetus Data [...] Domestic Partner Domestic Partner Phone Father Name Rn Surgery Icu Status 12/05/19 20 1 CLOSED Fetus Data [...] Domestic Partner Domestic Partner Phone Father Name Rn Surgery Icu Status 12/24/19 21 1 CLOSED Fetus Data [...]
[2024-12-09 12:43] LABS: Basophils Percent Auto 0.4 % (0.2-1.2); Eosinophils Absolute Auto 0.1 K/mm3 (0-0.3); Eosinophils Percent Auto 2.5 % (0-4.4); Hematocrit 43.4 % (37.0-47.0); Hemoglobin 13.9 g/dL (12.0-15.0); Immature Granulocyte Absolute 0.02 K/mm3 (0.00-0.031); Immature Granulocyte Percent A 0.4 % (0-0.5); Lymphocytes Absolute Auto 1.64 K/mm3 (0.9-3.2); Lymphocytes Percent Auto 29.7 % (18.3-44.2); Mean Corpuscular Volume 96.7 fl (80-100); Mean Platelet Volume 10.1 fl (7.4-10.4); Monocytes Absolute Auto 0.5 K/mm3 (0.1-0.6); Monocytes Percent Auto 8.5 % (2.6-8.5); Neutrophils Absolute Auto 3.2 K/mm3 (1.3-6.7); Neutrophils Percent Auto 58.5 % (45.5-73.1); Platelet Count Result 371 k/mm3 (150-375); Red Blood Count 4.49 M/mm3 (4.2-5.4); Red Cell Distribution Width 14.1 % (11.5-14.5); White Blood Count 5.5 K/mm3 (4.5-10.0)
[2024-12-09 12:50] LABS: Hemoglobin A1C 6.2 % (<5.7)
[2024-12-09 13:01] LABS: Alanine Aminotransferase 20 U/L (6-35); Albumin Level 4.5 g/dL (3.5-5.1); Alkaline Phosphatase 65 U/L (38-126); Anion Gap 9 mmol/L (4-12); Aspartate Amino Transferase 33 U/L (14-36); Bilirubin,Total 0.6 mg/dL (0.2-1.3); Blood Urea Nitrogen 15 mg/dL (7-17); Calcium 9.3 mg/dL (8.4-10.2); Carbon Dioxide 28 mmol/L (22-30); Chloride 103 mmol/L (98-107); Cholesterol 199 mg/dL (0-200); Estimated Glomerular Filt Rate > 60; Glucose 98 mg/dL (65-110); HDL Direct 77 mg/dL; Potassium 4.9 mmol/L (3.4-5.0); Sodium 140 mmol/L (137-145); Triglycerides 154 mg/dL (<150)
[2024-12-09 13:08] LABS: LDL Cholesterol Direct 40 mg/dL
[2024-12-09 13:32] LABS: Vitamin D 25 Hydroxy 55.1 ng/mL
== END 2024-12-09 08:39 | disposition home or self-care (01) ==
LOC: ANHGOSHLAB 08:39
PROVIDERS: PCP Family Medicine; Visit Provider Family Medicine
DX: E78.2 Mixed hyperlipidemia (principal); R73.03 Prediabetes; I10 Essential (primary) hypertension; E55.9 Vitamin D deficiency, unspecified; F41.9 Anxiety disorder, unspecified; E53.8 Deficiency of other specified B group vitamins
CPT/HCPCS: 36415; 80053; 80061; 82306; 82607; 83036; 84443; 85025

== ENCOUNTER 2025-01-01 08:26 | Outpatient (CLI) | payer MEDICARE, SELFPAY ==
--- NOTE | ~2025-01-01 | MM_ITS ---
EXAMINATION: MM screening brenda BI w lu HISTORY: Screening TECHNIQUE: Craniocaudal and mediolateral oblique 3-D tomosynthesis images were obtained and synthetic 2-D images were generated. CAD analysis was submitted and interpreted. COMPARISON: Comparison to multiple prior studies sequentially, with oldest reviewed study dated 08/2019. BREAST PARENCHYMAL COMPOSITION: Not dense: There are scattered areas of fibroglandular density. FINDINGS: There is no evidence of suspicious mass, calcification, or architectural distortion to sugg est malignancy in either breast. There has been no suspicious interval change. IMPRESSION: 1. No mammographic evidence of malignancy. 2. Recommend routine screening mammography in one year. BI-RADS Category 1: Negative Reviewed, dictated and finalized at location A.
--- OUTSIDE RECORDS SUMMARY | 2025-01-01 08:31 | XMS_ITS | Data Portability ---
Author Organization [facility] Address [address] [place] [address] Care Team Providers Care Manager Of Business Name Role Phone AZALIA CARLISLE Primary Care Provider Assessment Encounter Date Assessment Date Assessment LastModified by Organization Details LastModified Time 12/05/2019 12/05/2019 Annual gynecological exam performed. Patient will come back in a year unless there are new symptoms. [email or web address] Not available 12/05/2019 10:17:46 12/20/2020 12/20/2020 Annual gynecological exam performed. Patient will come back in a year unless there are new symptoms. [email or web address] Not available 12/20/2020 10:12:25 12/22/2021 12/22/2021 Annual gynecological exam performed. Patient will come back in a year unless there are new symptoms. Not available 12/22/2021 12:01:24 12/25/2023 12/25/2023 Annual gynecological exam performed. Patient will come back in a year unless there are new symptoms. [email or web address] Not available 12/25/2023 09:56:22 Plan of Treatment Reminders Order Date Submit Date Provider Last Modified By Organization Details Last Modified Time Details Appointments None recorded. Lab None recorded. Referral gastroenter ologist referral - Lizz has seen Dr. Hollis in the past and prefers to see him, if possible 2020 021 [email or web address] [facility], [address], [address], [place], [address], 14:44:11 Procedures None recorded. Surgeries None recorded. Imaging MAMMO, screening, bilateral [email or web address] [facility], [address], [address] [address], [place], [address], 4 10:23:50 Medication Orders Vagifem 10 mcg vaginal tablet 2023 024 [facility] #[id number], [address] [place], [address], 4 10:09:30 Patient TargetsNo targets recorded. Patient Instructions Encounter Date Encounter Id Patient Instructions Last Modified By Organization Details Last Modified Time 12/05/2019 [id number] well visit, wome n 50 to 65: care instructions [email or web address] Not available 12/05/2019 10:34:52 Reason for Referral Care Professional Referral for Screening for malignant neoplasm of colon Lizz has seen Dr. Hollis in the past and prefers to see him, if possible Referring Physician: Maren Steiner, SALES DESIGNER, Encounter Date: 12/20/2020 Results Created Date Observation [...] labor atory findi ngs. See https ://ww [employer]. [employer]/s ites/ defau lt/fi les/2 018-0 3/AW- 17553 _002_ 01.pd f for carter tirado. Test perfo rmed by [facility] d/b/a [facility], [address], [place] [address] , Lauren Carmen ra, DO, [facility]. Not Available [facility] ([facility]) [address] [place] [address] [address], [place], [address], 12/08/2019 09:15:35 07/26/20 20 07/27/2020 CBC w/ auto diff WBC 5.8 K/uL 3.8-11 .5 Not Available [facility] ([facility]) [address] [place] [address] [address], [place], [address], 07/27/2020 09:13:38 07/26/2007/27/2020 CBC w/ auto diff red blood cell count (RBC) 4.42 M/mm3 3.60-5 .30 Not Available [facility] ([facility]) [address] [place] [address] Dr [address], [place], [address], 07/27/2020 09:13:38 07/26/20 20 07/27/2020 CBC w/ auto diff hemoglobin (HGB) 14.2 gm/dL 11.5-1 5.5 Not Available [facility] ([facility]) [address] [place] [address] [address], [place], [address], 07/27/2020 09:13:38 07/26/20 20 07/27/2020 CBC w/ auto diff hematocrit (HCT) 41.5 % 35.2-4 6.4 Not Available [facility] ([facility]) [address] [place] [address] [address], [place], [address], 07/27/2020 09:13:38 07/26/2007/27/2020 CBC w/ auto diff MCV 93.9 fL 79.0-9 9.0 Not Available [facility] ([facility]) [address] [place] [address] [address], [place], [address], 07/27/2020 09:13:38 07/26/20 20 07/27/2020 CBC w/ auto diff MCH 32.1 pg 26.9-3 5.0 Not Available [facility] ([facility]) [address] [place] [address] [address], [place], [address], 07/27/2020 09:13:38 07/26/20 20 07/27/2020 CBC w/ auto diff MCHC 34.2 g/dL 30.4-3 4.8 Not Available [facility] ([facility]) [address] [place] [address], [place], [address], 07/27/2020 09:13:38 07/26/20 20 07/27/2020 CBC w/ auto diff RDW 45.8 fL 38.6-5 3.8 Not Available [facility] ([facility]) [address] [place] [address] [address], [place], [address], 07/27/2020 09:13:38 07/26/20 20 07/27/2020 CBC w/ auto diff platelet count 375 K/cum m 137-39 7 Not Available [facility] ([facility]) [address] [place] [address] Dr [address], [place], [address], 07/27/2020 09:13:38 07/26/20 20 07/27/2020 CBC w/ auto diff neutrophils automated 52.4 % 41.0-7 7.0 Not Available [facility] ([facility]) [address] [place] [address] [address], [place], [address], 07/27/2020 09:13:38 07/26/20 20 07/27/2020 CBC w/ auto diff lymphocytes automated 37.6 % 14.0-4 8.0 Not Available [facility] ([facility]) [address] [place] [address] [address], [place], [address], 07/27/2020 09:13:38 12/21/20 20 07/27/2020 CBC w/ auto diff monocytes automated 7.8 % 4.0-13 .0 Not Available [facility] ([facility]) [address] [place] [address] [address], [place], [address], 07/27/2020 09:13:38 07/26/20 20 07/27/2020 CBC w/ auto diff eosinophils automated 1.7 % 0.0-8. 0 Not Available [facility] ([facility]) [address] [place] [address] [address], [place], [address], 07/27/2020 09:13:38 07/26/2007/27/2020 CBC w/ auto diff basophils automated 0.3 % 0.0-1. 5 Not Available [facility] ([facility]) [address] [place] [address] [address], [place], [address], 07/27/2020 09:13:38 07/26/20 20 07/27/2020 CBC w/ auto diff immature granulocyte automated 0.2 % 0.0-1. 0 Not Available [facility] ([facility]) [address] [place] [address] Dr [address], [place], [address], 07/27/2020 09:13:38 07/26/20 20 07/27/2020 CMP, serum or plasm a sodium 140 mEq/L 135-14 5 Not Available [facility] ([facility]) [address] [place] [address] Dr [address], [place], [address], 07/27/2020 09:13:39 07/26/20 20 07/27/2020 CMP, serum or plasm a potassium 5.0 mEq/L 3.5-5. 3 Not Available [facility] ([facility]) [address] [place] [address] Dr [address], [place], [address], 07/27/2020 09:13:39 07/26/20 20 07/27/2020 CMP, serum or plasm a chloride 101 mEq/L 97-108 Not Available [facility] ([facility]) [address] [place] [address] Dr [address], [place], [address], 07/27/2020 09:13:39 07/26/20 20 07/27/2020 CMP, serum or plasm a CO2 28 mEq/L 22-32 Not Available [facility] ([facility]) [address] [place] [address] Dr [address], [place], [address], 07/27/2020 09:13:39 07/26/20 20 07/27/2020 CMP, serum or plasm a glucose 108 mg/dL 65-99 high Not Available [facility] ([facility]) [address] [place] [address] Dr [address], [place], [address], 07/27/2020 09:13:39 07/26/20 20 07/27/2020 CMP, serum or plasm a BUN 15 mg/dL 8-23 Not Available [facility] ([facility]) [address] [place] [address] Dr [address], [place], [address], 07/27/2020 09:13:39 07/26/20 20 07/27/2020 CMP, serum or plasm a creatinine 0.93 mg/dL 0.50-1 .00 Not Available [facility] ([facility]) [address] [place] [address] Dr [address], [place], [address], 07/27/2020 09:13:39 07/26/20 20 07/27/2020 CMP, serum or plasm a calcium 9.9 mg/dL 8.6-10 .4 Not Available [facility] ([facility]) [address] [place] [address] Dr [address], [place], [address], 07/27/2020 09:13:39 07/26/20 20 07/27/2020 CMP, serum or plasm a protein 7.4 g/dL 6.0-8. 3 Not Available [facility] ([facility]) [address] [place] [address] Dr [address], [place], [address], 07/27/2020 09:13:39 07/26/20 20 07/27/2020 CMP, serum or plasm a albumin 4.8 g/dL 3.5-5. 3 Not Available [facility] ([facility]) [address] [place] [address] Dr [address], [place], [address], 07/27/2020 09:13:39 07/26/2007/27/2020 CMP, serum or plasm a alkaline phosphatase 75 IU/L 35-121 Not Available [facility] ([facility]) [address] [place] [address] Dr [address], [place], [address], 07/27/2020 09:13:39 07/26/20 20 07/27/2020 CMP, serum or plasm a ALT (SGPT) 13 IU/L <5-47 Not Available [facility] ([facility]) [address] [place] [address] [address], [place], [address], 07/27/2020 09:13:39 07/26/20 20 07/27/2020 CMP, serum or plasm a AST (SGOT) 17 IU/L <5-40 Not Available [facility] ([facility]) [address] [place] [address] Dr [address], [place], [address], 07/27/2020 09:13:39 07/26/2007/27/2020 CMP, serum or plasm a bilirubin, total 0.4 mg/dL <0.2-1 .2 Not Available [facility] ([facility]) [address] [place] [address] [address], [place], [address], 07/27/2020 09:13:39 07/26/20 20 07/27/2020 CMP, serum or plasm a A/G ratio 1.8 mg/dL 1.1-2. 5 Not Available [facility] ([facility]) [address], [place], [address], 07/27/2020 09:13:39 07/26/20 20 07/27/2020 GFR, estim ated (eGFR ), serum estimated GFR (black) 76 mL/mi n/1.7 3m2 >59 Not Available [facility] ([facility]) [address], [place], [address], 07/27/2020 09:13:39 07/26/20 20 07/27/2020 GFR, estim [...] muscl e mass or diet. Not Available [facility] ([facility]) [address], [place], [address], 07/27/2020 09:13:39 07/26/20 20 07/27/2020 phosp horus , serum or plasm a phosphorus 4.1 mg/dL 2.5-4. 5 Not Available [facility] ([facility]) [address] [place] [address] [address], [place], [address], 07/27/2020 09:13:40 07/26/20 20 07/27/2020 TSH, serum or plasm a TSH reflex to FT4 3.92 mU/L 0.27-4 .20 Not Available [facility] ([facility]) [address] [place] [address] Dr [address], [place], [address], 07/27/2020 09:13:40 07/26/20 20 07/27/2020 vitam in [...] corre latio n requi red. Not Available [facility] [address] [place] [address] Dr [address], [place], [address], 07/27/2020 09:13:41 12/05/19 20 12/05/2019 MAMMO , scree maylin, bilat eral No observ ation record ed. [address] (Imaging) [address] [place] [address], [id number], 12/08/2019 14:35:07 12/05/19 20 12/05/2019 MAMMO , scree maylin, bilat eral No observ ation record ed. [address] (Imaging) [address] [place] [address], [phone], 12/08/2019 14:35:07 12/12/19 20 MAMMO , scree maylin, bilat eral No observ ation record ed. [email or web address] Not Available 08/2019 14:20:54 12/18/19 20 12/18/2019 MAMMO , diagn ostic , digit al, bilat eral No observ ation record ed. [address] - Breast Ctr [address], [place], [address], 12/22/2019 12:04:39 12/23/19 20 12/05/2019 DEXA No observ ation record ed. [email or web address] Not Available 2019 12:36:42 12/22/19 21 12/21/2020 MAMMO , scree maylin, bilat eral No observ ation record ed. [address] [facility] [address], [place], [address], 12/24/2020 17:16:17 12/23/19 22 12/22/2021 MAMMO , scree maylin, bilat eral No observ ation record ed. [email or web address] [facility] [address], [place], [address], 12/25/2023 09:59:51 Result Notes None recorded. Problems Name Problem SNOMED Code Status Onset Date Resolution Date Notes Provider Name and Address Organization Details Recorded Time SNOMED CT Concept Completed 201712/21/2021 Encntr for general adult medical exam w/o abnormal findings; Recorded Elsewhere : No Locati on: [facility] So urce: EHR Chron ic: N Practic e ID: [id number] Bill able Time: 11:30:00 AM Sweetie huizar [facility] 17:19:[address] Concept Completed 201512/21/2021 Encntr for obstetrics/gynecology nurse exam (general) (routine) w/o abn findings; Recorded Elsewhere : No Locati on: [facility] So urce: EHR Chron ic: N Practic e ID: [id number] Bill able Time: 10:30:00 AM Sweetie huizar [facility] 2 17:19:56 Screenin g for malignan t neoplasm of rectum Completed 201612/21/2021 Encounter for screening for malignant neoplasm of rectum;Re corded Elsewhere : No Locati on: [facility] So urce: EHR Chron ic: N Practic e ID: [id number] Bill able Time: 09:00:00 AM Sweetie [facility] 2 17:19:56 Evaluati on finding [id number] Completed 201812/21/2021 Oth abn and inconclus gerson findings on dx imaging of breast;Re corded Elsewhere : No Locati on: [facility] So urce: EHR Chron ic: N Practic e ID: [id number] Bill able Time: 08:12:09 AM Sweetie Maldonado [facility] 2 17:19:56 Micturit ion finding Completed 201812/21/2021 Urinary incontine nce;Recor ded Elsewhere : No Locati on: [facility] So urce: EHR Chron ic: N Practic e ID: [id number] Bill able Time: 01:00:00 PM Sweetie Maldonado [facility] 2 17:19:56 Polyp of cervix [id number] Completed 201612/21/2021 Polyp of cervix uteri;Rec orded Elsewhere : No Locati on: [facility] So urce: EHR Chron ic: N Practic e ID: [id number] Bill able Time: 11:30:00 AM Sweetie [facility] 2 17:19:56 Problem Notes None recorded. Procedures Surgical History Date Name Laterality Status Provider Name and Address Organization Details Recorded Time 12/05/19 Date of Last Pap Smear completed Sweetie Maldonado [facility] 12/22/2021 12:02:17 11/29/19 17 cervical biopsy completed Margie Pettit [facility] 12/23/2020 12:47:34 08/06/19 07 Cholecystectomy completed Margie Pettit [facility] 12/23/2020 12:46:24 10/04/18 82 [facility]/23/2020 12:47:01 Imaging Results None recorded. Procedure Notes None recorded. Medical Equipment None [...] Prescrib ed Elsewher e: Yes Loca tion: [facility] odify By: laura isaac DateTime : 11/16/19 16 10:30:00 AM Not [...] Prescrib ed Elsewher e: No Locat ion: [facility] odify By: laura isaac DateTime : 11/16/19 16 10:30:00 AM Not Available Not Available Not Available acetamino phen 300 mg-codein e 30 mg tablet TAKE 1 TABLET ORALLY TWICE A DAY NEEDED FOR PAIN active Not Available Not Available No t Available Synthroid 25 mcg tablet take 1 tablet by oral route every day 12/02 completed Prescrib ed Elsewher e: No Locat ion: [facility] odify By: laura palmauntchente DateTime : 12/14/19 18 10:03:06 AM Not Available Not Available Not Available Tylenol 325 mg tablet take 1 tablet by oral route every 4 hours as needed active Prescrib ed Elsewher e: Yes Loca tion: Sung miner [facility] odify By: darlin lunaer DateTime : 11/16/19 16 10:30:00 AM Not [...] Prescrib ed Elsewher e: Yes Loca tion: Lindsay royce [facility] odify By: laura isaac DateTime : 11/16/19 16 10:30:00 AM Not Available Not Available Not Available lisinopri l 2.5 mg tablet take 1 tablet by oral route every day 12/24 completed Prescrib ed Elsewher e: Yes Loca tion: Felipatadeomaria teresa miner [facility] odify By: darlin palmauntchente DateTime : 11/16/19 16 10:30:00 AM Not [...] Prescrib ed Elsewher e: Yes [facility] By: [email or web address] Royce ncounter DateTime : 11/16/19 16 10:30:00 AM [...] Prescrib ed Elsewher e: Yes [facility] By: lsisma Royce ncounter DateTime : 11/16/19 16 10:30:00 AM Not Available Not Available Not Available Vagifem 10 mcg vaginal tablet Insert 1 tablet twice a week by vaginal route at bedtime for 30 days. 2023 active Not Available Not Available Not Avai lable OneTouch Verio test strips USE 1 STRIP DAILY DIRECTED active Not Available Not Available No t Available Vitals Date Recorded Body weight Systolic blood pressure Diastolic blood pressure Provider Name and Address Organization Details Last Updated DateTime 12/05/2019 24563.86 g 136 mm[Hg] 81 mm[Hg] Deanne Escobar [facility] 12/05/2019 10:18:10 Date Recorded Systolic blood pressure Diastolic blood pressure Provider Name and Address Organization Details Last Updated DateTime 12/20/2020 134 mm[Hg] 72 mm[Hg] Maren Steiner [facility] [address], [place], [address], [facility] 12/20/2020 10:30:14 Date Recorded Body height Body mass index (BMI) Body weight Provider Name and Address Organization Details Last Updated DateTime 12/20/2020 155.58 cm 27.9 kg/m2 22223.26 g Margie Pettit [facility] 12/20/2020 10:13:52 Date Recorded Systolic blood pressure Diastolic blood pressure Provider Name and Address Organization Details Last Updated DateTime 12/22/2021 128 mm[Hg] 78 mm[Hg] Maren Steiner [facility]- [address], [place], [address], [facility] 12/22/2021 12:29:07 Date Recorded Body height Body mass index (BMI) Body weight Provider Name and Address Organization Details Last Updated DateTime 12/22/2021 156.21 cm 27.5 kg/m2 64141.67 g Sweetie Maldonado [facility] 12/22/2021 12:01:46 Date Recorded Body height Body mass index (BMI) Body weight Systolic blood pressure Diastolic blood pressure Provider Name and Address Organization Details Last Updated DateTime 12/25/2023 156.21 cm 29.2 kg/m2 67472 g 151 mm[Hg] 78 mm[Hg] Margie Pettit [facility] 09:56:41 Social History Question Answer Notes LastModified by Organizat ion Details LastModified Time Tobacco Smoking Status Never Smoker Sweetie Joel null, [facility] 12/22/2021 12:01:57 Do You Have An Advance Directive? No [email or web address] Information n ot available 12/20/2020 Are You Blind Or Do You Have Difficulty Seeing? No [email or web address] Information n ot available 12/20/2020 What Is Your Level Of Caffeine Consumption? Occasional [email or web address] Information not available 12/20/2020 In The 14 Days Before Symptom Onset, Have You Had Close Contact With A Laboratory-confirm ed COVID-19 While That Case Was Ill? No Information n ot available 12/20/2020 In The 14 Days Before Symptom Onset, Have You Had Close Contact With A Person Who Is Under Investigation For COVID-19 While That Person Was Ill? No [email or web address] Information not available 12/20/2020 Have You Been To An Area Known To Be High Risk For COVID-19? No [email or web address] Information not available 12/20/2020 Are You Deaf Or Do You Have Serious Difficulty Hearing? No [email or web address] Information not available 12/20/2020 What Type Of Diet Are You Following? REGULAR [email or web address] Information n ot available 12/20/2020 What Is The Highest Grade Or Level Of School You Have Completed Or The Highest Degree You Have Received? [id number] [email or web address] Information not available 12/20/2020 Have You Ever Been Counseled For Unhealthy Alcohol Use? No [email or web address] Information not available 12/25/2023 Do You Use Protection During Sex? No Information not available 12/20/2020 Do You Use Your Seat Belt Or Car Seat Routinely? Yes [email or web address] Information not available 12/20/2020 Do You Have Smoke And Carbon Monoxide Detectors In Your Home? Yes [email or web address] Information not available 12/20/2020 How Much Tobacco Do You Smoke? No [email or web address] Information not available 12/20/2020 Do You Use Sunscreen Routinely? Yes [email or web address] Information not available 12/25/2023 Has Tobacco Cessation Counseling Been Provided? No [email or web address] Information not available 12/25/2023 Have You Used IV Drugs? No [email or web address] Information not available 12/20/2020 Do You Have Difficulty Walking Or Climbing Stairs? No Information not available 12/22/2021 Sex: Unknown Functional Status Question Answer Note LastModified by Organizat ion Details LastModified Time Do you use any illicit or recreational drugs? No [email or web address] Information not available 12/20/2020 Do you or have you ever used any other forms of tobacco or nicotine? No [email or web address] Information not available 12/25/2023 What is your level of alcohol consumption? Occasional [email or web address] Information not available 12/20/2020 Are you currently employed? No [email or web address] Information not available 12/25/2023 Are you able to walk? YESWOREST [email or web address] Information not available 12/20/2020 Are you able to care for yourself? Yes Information n ot available 12/22/2021 What is your occupation? Retired Information not available 12/22/2021 Do you have difficulty dressing or bathing? No Information not available 12/22/2021 What is your exercise level? Occasional Information not available 12/20/2020 Mental Status Question Answer Note LastModified by Organization D etails LastModified Time Do you feel stressed (tense, restless, nervous, or anxious, or unable to sleep at night)? [id number] [email or web address] Information not available 12/20/2020 Family History Relationship Description Onset Age of [...] available 2021 11:31:17 Maternal Grandmother Heart disease [email or web address] Not available 12/23 12:43:46 Maternal Uncle Diabetes mellitus [email or web address] Not available 2019 11:22:49 Maternal Uncle Heart disease [email or web address] Not available 2019 11:23:22 Maternal Aunt Diabetes mellitus [email or web address] Not available 2019 11:22:49 Maternal Aunt Psychotic disorder [email or web address] Not available 2021 11:31:17 Unspecified Relation Carcinoma in situ of breast 35 COUSIN mark Not available 2021 11:31:17 Unspecified Relation Malignant lymphoma 30 NEPHEW mark Not available 2021 11:31:17 Medical History Condition [...] ICD10 Code Diagnosis Note [id number] [facility] [address] [address] 12/05/2019 10:11:47 12/05/2019 10:36:36 Routine gynecologic examination done [id number] Z01.419 Take Calcium with Vitamin D 12-1500mg daily. Do monthly self breast exams. It is advised to get annual flu shot in the fall and she could obtain at [facility] or [facility] care clinic. If you haven't received [...] CBE done Colonoscop y managed by GI/PCP. [id number] DAYSI [facility] [address] [address] 12/20/2020 09:40:19 12/20/2020 10:36:08 Gynecologic examination [id number] Z01.419 Take Calcium with Vitamin D 12-1500mg daily. Do monthly self breast exams. It is advised to get annual flu shot in the fall and she could obtain at [facility] or [facility]. If you haven't received the Tdap vaccine [...] concerns Screening for malignant neoplasm of colon [id number] Z12.11 [id number] Maren Steiner [facility] [address] [address] 12/22/2021 11:29:20 12/22/2021 12:32:53 Gynecologic examination [id number] Z01.419 Take Calcium with Vitamin D 12-1500mg daily. Do monthly self breast exams. It is advised to get annual flu shot in the fall and she could obtain at [facility] or [facility] clinic. If you haven't received the Tdap [...] UTD PCP Routine Labs UTD PCPMammo ordered [id number] Maren Steiner , [facility] [address] [address] 12/25/2023 09:42:52 12/25/2023 10:12:46 Gynecologic examination [id number] Z01.419 Take Calcium with Vitamin D 12-1500mg daily. Do monthly self breast exams. It is advised to get annual flu shot in the fall and she could obtain at [facility] or [facility]. If you haven't received the Tdap vaccine [...] Labs UTD PCPMammo ordered Screening mammography [id number] Z12.31 Dyspareunia [id number] N94 .10 Due to postmenopa usal changesTri [...] with a healthcare provider and oncologist . Governmen t-approved low-dose vaginal estrogen products are [...] the vagina are recommende d. Resources: https://ww w.[employer].org/docs /default-s ource/for- women/mn-v aginal-dry ness.pdf Health Concerns Section Related Observation LastModified by Organization Detai ls LastModified Time None Recorded Concern Status LastModified by Organization Details LastModified Time None Recorded Advance Directives Directive N: Payers Encounter Date Sequence Insurance Name Policy Number Policy Canas Covered Member ID Canas Member ID Guarantor Name 12/05/2019 1 [employer] (MEDICARE REPLACEMENT/ ADVANTAGE - HMO) [id number] Lizz Mikel [id number] Lizz [place] 12/20/2020 1 [employer] (HMO) [id number] Lizz R [place] [id number] Lizz Mikel 12/22/2021 1 [employer] [id number] Lizz R [place] [id number] Lizz Mikel 12/25/2023 1 [employer] [id number] Lizz R Mikel [id number] Lizz [place] Notes Date Note Type Note Provider Name and Address Organization Details Recorded Time 12/20/2020 text/html Annual Tank Filler Post-MenopausalRe ported bypatient.[place] [facility] Symptoms:no menopausal symptoms; [...] schedule mammogram; needs to schedule colonoscopy; Dexa 2019 per pt Osteopenia Maren Steiner, NP-BC [address], [place], [address], [facility] 12/20/2020 10:30:49 12/22/2021 text/html Annual Tank Filler Post-MenopausalRe ported bypatient.[place] Symptoms:no menopausal symptoms; [...] to schedule bone density (Scheduled by PCP) AMANDA [place] [address], [place], [address], [facility] 12/22/2021 12:31:35 12/25/2023 text/html Annual Tank Filler Post-MenopausalRe ported bypatient.[place] Symptoms:no menopausal symptoms;inadequa [...] to schedule bone density (Rx by PCP) REJI [place] [address], [place], [address], [facility] 12/25/2023 10:11:59 OBGyn Episode Ob Episode Information Episode Created Date Number of Fetuses Patient Bloodtype Patient rh Status Prepregnancy Weight lbs Domestic Partner Domestic Partner Phone Father Name Lag Screwer Status 12/05/19 20 1 CLOSED Fetus Data [...] Domestic Partner Domestic Partner Phone Father Name Lag Screwer Status 12/05/19 20 1 CLOSED Fetus Data [...] Domestic Partner Domestic Partner Phone Father Name Lag Screwer Status 12/24/19 21 1 CLOSED Fetus Data [...]
== END 2025-01-01 08:27 | disposition home or self-care (01) ==
PROVIDERS: PCP Family Medicine; Visit Provider Family Medicine
DX: Z12.31 Encounter for screening mammogram for malignant neoplasm of breast (principal)
CPT/HCPCS: 77063; 77067

== ENCOUNTER 2025-06-03 09:40 | Outpatient (CLI) | payer MEDICARE, SELFPAY ==
--- OUTSIDE RECORDS SUMMARY | 2025-06-03 10:37 | XMS_ITS | Data Portability ---
Author Organization [facility] Address [address] [place] [address] Care Team Providers Care Rail Bender Name Role Phone MAYLIN AZALIA Primary Care Provider Assessment Encounter Date Assessment Date Assessment LastModified by Organization Details LastModified Time 12/05/2019 12/05/2019 Annual gynecological exam performed. Patient will come back in a year unless there are new symptoms. [email or web address] Not available 12/05/2019 10:17:46 12/20/2020 12/20/2020 Annual gynecological exam performed. Patient will come back in a year unless there are new symptoms. [email or web address] Not available 12/20/2020 10:12:25 12/22/2021 12/22/2021 Annual gynecological exam performed. Patient will come back in a year unless there are new symptoms. Not available 12/22/2021 12:01:24 12/25/2023 12/25/2023 Annual gynecological exam performed. Patient will come back in a year unless there are new symptoms. [email or web address] Not available 12/25/2023 09:56:22 Plan of Treatment Reminders Order Date Submit Date Provider Last Modified By Organization Details Last Modified Time Details Appointments None recorded. Lab None recorded. Referral gastroenter ologist referral - Lizz has seen Dr. Hollis in the past and prefers to see him, if possible 2020 021 [email or web address] [facility]astroenter[facility], [address], [address], [place], [address], 14:44:11 Procedures None recorded. Surgeries None recorded. Imaging MAMMO, screening, bilateral 2023 024 [email or web address] [facility], [address], [address], [place], [address], 4 10:23:50 Medication Orders Vagifem 10 mcg vaginal tablet 2023 024 [facility] #[id number], [address] [place], [address], 4 10:09:30 Patient TargetsNo targets recorded. 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 Hollis in the past and prefers to see him, if possible Referring Physician: Maren Steiner, VP [employer], Encounter Date: 12/20/2020 Results Created Date Observation [...] tion of E6/E7 viral mRNA. Resul joaquin ziegler lated with patie nt prese ntati on, histo ry, cervi nahomi cytol ogy and other clini nahomi and labor atory findi ngs. See https ://ww wFlameStower. USEUM/s ites/ defau lt/fi les/2 018-0 3/AW- 50675 _002_ 01.pd f for carter tirado. Test perfo rmed by [facility] d[facility]a [facility], [address], [place] [address] , Lauren Carmen ra, DO, Labor atory [facility]. Not Available [facility] ([facility]) [address] [place] [address] Dr [address], [place], [address], 12/08/2019 09:15:35 07/26/20 20 07/27/2020 CBC w/ auto diff WBC 5.8 K/uL 3.8-11 .5 Not Available [facility] ([facility]) [address] [place] [address] Dr Dodge, [place], [address], 07/27/2020 09:13:38 07/26/2007/27/2020 CBC w/ auto diff red blood cell count (RBC) 4.42 M/mm3 3.60-5 .30 Not Available [facility] -[facility] ([facility]) [address] [place] [address] Dr Dodge, [place], [address], 07/27/2020 09:13:38 07/26/2007/27/2020 CBC w/ auto diff hemoglobin (HGB) 14.2 gm/dL 11.5-1 5.5 Not Available [facility] ([facility]) [address] [place] [address] Dr Dodge, [place], [address], 07/27/2020 09:13:38 07/26/20 20 07/27/2020 CBC w/ auto diff hematocrit (HCT) 41.5 % 35.2-4 6.4 Not Available [facility] ([facility]) [address] [place] [address] Dr Dodge, [place], [address], 07/27/2020 09:13:38 07/26/2007/27/2020 CBC w/ auto diff MCV 93.9 fL 79.0-9 9.0 Not Available [facility] ([facility]) [address] [place] [address] Dr Dodge, [place], [address], 07/27/2020 09:13:38 12/21/20 20 07/27/2020 CBC w/ auto diff MCH 32.1 pg 26.9-3 5.0 Not Available [facility] ([facility]) [address] [place] [address] Dr Dodeg, [place], [address], 07/27/2020 09:13:38 07/26/20 20 07/27/2020 CBC w/ auto diff MCHC 34.2 g/dL 30.4-3 4.8 Not Available [facility] ([facility]) [address] [place] [address] Dr [address], [place], [address], 07/27/2020 09:13:38 07/26/2007/27/2020 CBC w/ auto diff RDW 45.8 fL 38.6-5 3.8 Not Available [facility] ([facility]) [address] [place] [address] Dr Dodge, [place], [address], 07/27/2020 09:13:38 07/26/20 20 07/27/2020 CBC w/ auto diff platelet count 375 K/cum m 137-39 7 Not Available [facility] ([facility]) [address] [place] [address] Dr Dodge, [place], [address], 07/27/2020 09:13:38 07/26/20 20 07/27/2020 CBC w/ auto diff neutrophils automated 52.4 % 41.0-7 7.0 Not Available [facility] ([facility]) [address] [place] [address] Dr Dodge, [place], [address], 07/27/2020 09:13:38 07/26/2007/27/2020 CBC w/ auto diff lymphocytes automated 37.6 % 14.0-4 8.0 Not Available [facility] ([facility]) [address] [place] [address] Dr Dodge, [place], [address], 07/27/2020 09:13:38 07/26/20 20 07/27/2020 CBC w/ auto diff monocytes automated 7.8 % 4.0-13 .0 Not Available [facility] ([facility]) [address] [place] [address] Dr Dodge, [place], [address], 07/27/2020 09:13:38 07/26/20 20 07/27/2020 CBC w/ auto diff eosinophils automated 1.7 % 0.0-8. 0 Not Available [facility] ([facility]) [address] [place] [address] Dr Dodge, [place], [address], 07/27/2020 09:13:38 07/26/2007/27/2020 CBC w/ auto diff basophils automated 0.3 % 0.0-1. 5 Not Available [facility] ([facility]) [address] [place] [address] Dr Dodge, [place], [address], 07/27/2020 09:13:38 07/26/2007/27/2020 CBC w/ auto diff immature granulocyte automated 0.2 % 0.0-1. 0 Not Available [facility] ([facility]) [address] [place] [address] Dr Dodge, [place], [address], 07/27/2020 09:13:38 07/26/20 20 07/27/2020 CMP, serum or plasm a sodium 140 mEq/L 135-14 5 Not Available [facility] ([facility]) [address] [place] [address] Dr Dodge, [place], [address], 07/27/2020 09:13:39 07/26/20 20 07/27/2020 CMP, serum or plasm a potassium 5.0 mEq/L 3.5-5. 3 Not Available [facility] ([facility]) [address] [place] [address] Dr Dodge, [place], [address], 07/27/2020 09:13:39 07/26/2007/27/2020 CMP, serum or plasm a chloride 101 mEq/L 97-108 Not Available [facility] ([facility]) [address] [place] [address] Dr Dodge, [place], [address], 07/27/2020 09:13:39 07/26/20 20 07/27/2020 CMP, serum or plasm a CO2 28 mEq/L 22-32 Not Available [facility] ([facility]) [address] [place] [address] Dr Dodge, [place], [address], 07/27/2020 09:13:39 07/26/20 20 07/27/2020 CMP, serum or plasm a glucose 108 mg/dL 65-99 high Not Available [facility] ([facility]) [address] [place] [address] Dr Dodge, [place], [address], 07/27/2020 09:13:39 07/26/20 20 07/27/2020 CMP, serum or plasm a BUN 15 mg/dL 8-23 Not Available [facility] ([facility]) [address] [place] [address] Dr Dodge, [place], [address], 07/27/2020 09:13:39 07/26/20 20 07/27/2020 CMP, serum or plasm a creatinine 0.93 mg/dL 0.50-1 .00 Not Available [facility] ([facility]) [address] [place] [address] Dr Dodge, [place], [address], 07/27/2020 09:13:39 07/26/20 20 07/27/2020 CMP, serum or plasm a calcium 9.9 mg/dL 8.6-10 .4 Not Available [facility] ([facility]) [address] [place] [address] Dr Dodge, [place], [address], 07/27/2020 09:13:39 07/26/20 20 07/27/2020 CMP, serum or plasm a protein 7.4 g/dL 6.0-8. 3 Not Available [facility] ([facility]) [address] [place] [address] Dr Dodge, [place], [address], 07/27/2020 09:13:39 07/26/20 20 07/27/2020 CMP, serum or plasm a albumin 4.8 g/dL 3.5-5. 3 Not Available [facility] ([facility]) [address] [place] [address] Dr Dodge, [place], [address], 07/27/2020 09:13:39 07/26/20 20 07/27/2020 CMP, serum or plasm a alkaline phosphatase 75 IU/L 35-121 Not Available [facility] ([facility]) [address] [place] [address] Dr Dodge, [place], [address], 07/27/2020 09:13:39 07/26/20 20 07/27/2020 CMP, serum or plasm a ALT (SGPT) 13 IU/L <5-47 Not Available [facility] ([facility]) [address] [place] [address] Dr Dodge, [place], [address], 07/27/2020 09:13:39 07/26/20 20 07/27/2020 CMP, serum or plasm a AST (SGOT) 17 IU/L <5-40 Not Available [facility] ([facility]) [address] [place] [address] Dr Dodge, [place], [address], 07/27/2020 09:13:39 07/26/20 20 07/27/2020 CMP, serum or plasm a bilirubin, total 0.4 mg/dL <0.2-1 .2 Not Available [facility] ([facility]) [address] [place] [address] Dr Dodge, [place], [address], 07/27/2020 09:13:39 07/26/20 20 07/27/2020 CMP, serum or plasm a A/G ratio 1.8 mg/dL 1.1-2. 5 Not Available [facility] ([facility]) [address], [place], [address], 07/27/2020 09:13:39 07/26/20 20 07/27/2020 GFR, estim ated (eGFR ), serum estimated GFR (black) 76 mL/mi n/1.7 3m2 >59 Not Available [facility] ([facility]) [address], [place], [address], 07/27/2020 09:13:39 07/26/20 20 07/27/2020 GFR, estim [...] e decre ase G5 14 or less Joon torres failu re *In the absen ce of joon jeanag e, neith er GFR categ ory G1 or G2 fulfi ll the crite luis for CKD (Kidcandida ey Int Suppl 2013; 3.1-1 50) The [...] muscl e mass or diet. Not Available [facility] ([facility]) [address], [place], [address], 07/27/2020 09:13:39 07/26/20 20 07/27/2020 phosp horus , serum or plasm a phosphorus 4.1 mg/dL 2.5-4. 5 Not Available [facility] ([facility]) [address] [place] [address] Dr Dodge, [place], [address], 07/27/2020 09:13:40 07/26/20 20 07/27/2020 TSH, serum or plasm a TSH reflex to FT4 3.92 mU/L 0.27-4 .[address]) [address] [place] [address] Dr [address], [place], [address], 07/27/2020 09:13:40 07/26/20 20 07/27/2020 vitam in [...] corre latio n requi red. 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 Atrop hy prese nt. Elect tonie dobbins by Alayna Morelos , CLIFF on 2023 at 3:53 PM ----- ----- ----- ----- ----- ----- ----- ----- ----- ----- ----- ----- ----- ----- ----- ----- ----- ---- HPV RESUL TS: HPV mRNA E6/E7 : No HPV mRNA Detec yonathan NOTE: This high risk HPV mRNA assay detec ts fourt een high- risk HPV types (16, 18, 31, 33, 35, 39, 45, 51, 52, 56, 58, 59, 66, 68) witho ut diffe renti ation . COMME NT: This speci men was revie wed by a Cytot echno logis t and/o r Patho logis t (as indic ated in this repor t) after evalu ation using the Thinp rep Imagi ng Syste m. CLINI NAHOMI INFOR MATIO N: Menst rual Statu s: LMP (if appli cable ): Clini nahomi Histo ry/Pr eviou s Pap: Type of Neopl ameya (if appli cable ): Signi marc t Clini nahomi Findi ngs: Other Histo ry: Hormo cleo (if appli cable ): PAP EDUCA RUPALI L NOTE: The Pap Test is a scree maylin test with an inher ent false negat gerson rate. Liqui d-bas ed sampl ing may decre ase, but will not elimi jasmin, false negat gerson resul ts. A negat gerson resul t does not precl ude the prese nce and/o r devel opmen t of disea se, since the prese nce of abnor mal cells in the sampl e depen ds on the locat ion of the lesio n and sampl ing techn ique. Vishnu nued regul ar scree maylin is the best metho d of cance r preve ntion . If repor yonathan cytol ogic findi ng do not corre late with physi nahomi and/o r histo rical findi ngs, furth er inves tigat ion is recom rafia d, as clini laxmi warra nted. Not Available [facility] (Lab) [address], [place], [address], 2023 16:56:57 12/05/19 20 12/05/2019 MAMMO , scree maylin, bilat eral No observ ation record ed. [address] (Imaging) [facility], [place], [address], 12/08/2019 14:35:07 12/05/19 20 12/05/2019 MAMMO , scree maylin, bilat eral No observ ation record ed. [address] (Imaging) [facility] [address], [place], [address], 12/08/2019 14:35:07 12/12/19 20 MAMMO , scree maylin, bilat eral No observ ation record ed. [email or web address] Not Available 08/2019 14:20:54 12/18/19 20 12/18/2019 MAMMO , diagn ostic , digit al, bilat eral No observ ation record ed. [address] - [facility] [address], [place], [address], 12/22/2019 12:04:39 12/23/19 20 12/05/2019 DEXA No observ ation record ed. [email or web address] Not Available 2019 12:36:42 12/22/19 21 12/21/2020 MAMMO , scree maylin, bilat eral No observ ation record ed. layran [facility] [address], [place], [address], 12/24/2020 17:16:17 12/23/19 22 12/22/2021 MAMMO , scree maylin, bilat eral No observ ation record ed. [email or web address] [facility] [address], [place], [address], 12/25/2023 09:59:51 Result Notes None recorded. 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 2 17:19:56 Screening for malignant neoplasm of rectum Completed 201612/21/2021 Encounter for screening for malignant neoplasm of rectum;Re corded Elsewhere : No Locati on: [facility] So urce: EHR Chron ic: N Practic e ID: [id number] Bill able Time: 09:00:00 AM Sweetie Maldonado [facility] 2 17:19:56 Polyp of cervix [id number] Completed 201612/21/2021 Polyp of cervix uteri;Rec orded Elsewhere : No Locati on: [facility] So urce: EHR Chron ic: N Practic e ID: [id number] Bill able Time: 11:30:00 AM Sweetie [facility] 2 17:19:[address] Concept Completed 201712/21/2021 Encntr for general adult medical exam w/o abnormal findings; Recorded Elsewhere : No Locati on: [facility] So urce: EHR Chron ic: N Practic e ID: [id number] Bill able Time: 11:30:00 AM Sweetie Maldonado [facility] 2 17:19:56 Micturiti on finding Completed 201812/21/2021 Urinary incontine nce;Recor ded Elsewhere : No Locati on: [facility] So urce: EHR Chron ic: N Practic e ID: [id number] Bill able Time: 01:00:00 PM Sweetie Maldonado [facility] 2 17:19:56 Evaluatio n finding Completed 201812/21/2021 Oth abn and inconclus gerson findings on dx imaging of breast;Re corded Elsewhere : No Locati on: [facility] So urce: EHR Chron ic: N Practic e ID: [id number] Bill able Time: 08:12:09 AM Sweetie Maldonado [facility] 2 17:19:56 Problem Notes None recorded. Procedures Surgical History Date Name Laterality Status Provider Name and Address Organization Details Recorded Time 12/05/19 20 Date of Last Pap Smear completed [facility] 12/22/2021 12:02:17 11/29/19 17 cervical biopsy completed [facility] 12/23/2020 12:47:34 08/06/19 07 Cholecystectomy completed [facility] 12/23/2020 12:46:24 10/04/18 82 section completed [facility] 12/23/2020 12:47:01 Imaging Results None recorded. [...] Elsewher e: Yes Loca tion: Sung miner [facility] odify By: amsotero palmaunter DateTime : 11/16/19 16 10:30:00 AM [...] Prescrib ed Elsewher e: No Locat ion: Lindsay royce [facility] odify By: amsotero palmaunter DateTime : 11/16/19 16 10:30:00 AM Not Available Not Available Not Available acetamino phen 300 mg-codein e 30 mg tablet TAKE 1 TABLET ORALLY TWICE A DAY NEEDED FOR PAIN active Not Available Not Available No t Available Synthroid 25 mcg tablet take 1 tablet by oral route every day 12/02 completed Prescrib ed Elsewher e: No [facility] By: amsotero palmaunter DateTime : 12/14/19 18 10:03:06 AM Not Available Not Available Not Available Tylenol 325 mg tablet take 1 tablet by oral route every 4 hours as needed active Prescrib ed Elsewher e: Yes [facility] odify By: darlin Miner ncounter DateTime : [...] DAY FOR A TOTAL OF 6 DAYS 05/21 /2024 completed Not Available Not Available Not Available [...] Prescrib ed Elsewher e: Yes [facility] odify By: laura Miner ncounter DateTime : 11/16/19 16 10:30:00 AM Not Available Not Available Not Available lisinopri l 2.5 mg tablet take 1 tablet by oral route every day 12/24 completed Prescrib ed Elsewher e: Yes [facility] By: darlin isaac DateTime : 11/16/19 16 10:30:00 AM [...] Prescrib ed Elsewher e: Yes Loca [facility]: [facility] By: laura palmaunter DateTime : 11/16/19 16 10:30:00 AM [...] Prescrib ed Elsewher e: Yes [facility] By: darlin isaac DateTime : 11/16/19 16 10:30:00 AM [...] Available Vitals Date Recorded Body weight Systolic And Diastolic Provider Name and Address Organization Details Last Updated DateTime 12/05/2019 83767.86 g 136/81 mm[Hg] Deanne Escobar [facility] 12/05/2019 10:18:10 Date Recorded Systolic And Diastolic Provider Name and Address Organization Details Last Updated DateTime 12/20/2020 134/72 mm[Hg] Maren Steiner, [facility] [address], [place], [address], [facility] 12/20/2020 10:30:14 Date Recorded Body height Body mass index (BMI) Body weight Provider Name and Address Organization Details Last Updated DateTime 12/20/2020 155.58 cm 27.9 kg/m2 64841.26 g Margie Pettit [facility] 12/20/2020 10:13:52 Date Recorded Systolic And Diastolic Provider Name and Address Organization Details Last Updated DateTime 12/22/2021 128/78 mm[Hg] Maren Steiner [facility] [address], [place], [address], [facility] 12/22/2021 12:29:07 Date Recorded Body height Body mass index (BMI) Body weight Provider Name and Address Organization Details Last Updated DateTime 12/22/2021 156.21 cm 27.5 kg/m2 66861.67 g Sweetie Maldonado [facility] 12/22/2021 12:01:46 Date Recorded Body height Body mass index (BMI) Body weight Systolic And Diastolic Provider Name and Address Organization Details Last Updated DateTime 12/25/2023 156.21 cm 29.2 kg/m2 55433 g 151/78 mm[Hg] Margie Pettit [facility] 12/25/2023 09:56:41 Social History Question Answer Notes LastModified by Organizat ion Details LastModified Time Tobacco Smoking Status Never Smoker Sweetie Maldonado [place], [place] - [facility] 12/22/2021 12:01:57 Do You Have An Advance Directive? No [email or web address] Information n ot available 12/20/2020 Are You Blind Or Do You Have Difficulty Seeing? No [email or web address] Information n ot available 12/20/2020 What Is Your Level Of Caffeine Consumption? Occasional [email or web address] Information not available 12/20/2020 In The 14 Days Before Symptom Onset, Have You Had Close Contact With A Laboratory-confirm ed COVID-19 While That Case Was Ill? No [email or web address] Information n ot available 12/20/2020 In The 14 Days Before Symptom Onset, Have You Had Close Contact With A Person Who Is Under Investigation For COVID-19 While That Person Was Ill? No [email or web address] Information not available 12/20/2020 Have You Been To An Area Known To Be High Risk For COVID-19? No [email or web address] Information not available 12/20/2020 Are You Deaf Or Do You Have Serious Difficulty Hearing? No [email or web address] Information not available 12/20/2020 What Type Of Diet Are You Following? REGULAR [email or web address] Information n ot available 12/20/2020 What Is The Highest Grade Or Level Of School You Have Completed Or The Highest Degree You Have Received? [id number] [email or web address] Information not available 12/20/2020 Have You Ever Been Counseled For Unhealthy Alcohol Use? No [email or web address] Information not available 12/25/2023 Do You Use Protection During Sex? No [email or web address] Information not available 12/20/2020 Do You Use Your Seat Belt Or Car Seat Routinely? Yes [email or web address] Information not available 12/20/2020 Do You Have Smoke And Carbon Monoxide Detectors In Your Home? Yes Information not available 12/20/2020 How Much Tobacco Do You Smoke? No [email or web address] Information not available 12/20/2020 Do You Use Sunscreen Routinely? Yes [email or web address] Information not available 12/25/2023 Has Tobacco Cessation Counseling Been Provided? No [email or web address] Information not available 12/25/2023 Have You Used IV Drugs? No [email or web address] Information not available 12/20/2020 Do You Have Difficulty Walking Or Climbing Stairs? No Information not available 12/22/2021 Sex: Unknown Functional Status Question Answer Note LastModified by Organizat ion Details LastModified Time Do you use any illicit or recreational drugs? No [email or web address] Information not available 12/20/2020 Do you or have you ever used any other forms of tobacco or nicotine? No [email or web address] Information not available 12/25/2023 What is your level of alcohol consumption? Occasional [email or web address] Information not available 12/20/2020 Are you currently employed? No [email or web address] Information not available 12/25/2023 Are you able to walk independently without assistance or assistive devices? YESWOREST [email or web address] Information not available 12/20/2020 Are you able to care for yourself independently? Yes Information not available 12/22/2021 What is your occupation? Retired Information not available 12/22/2021 Do you have difficulty dressing, bathing, grooming, or toileting? No Information not available 12/22/2021 What is your exercise level? Occasional [email or web address] Information not available 12/20/2020 Mental Status Question Answer Note LastModified by Organization D etails LastModified Time Do you feel stressed (tense, restless, nervous, or anxious, or unable to sleep at night)? [id number] [email or web address] Information not available 12/20/2020 Family History Relationship [...] available 2021 11:31:17 Maternal Grandmother Heart disease [email or web address] Not available 12/23 12:43:46 Maternal Uncle Diabetes [...] Diagnosis SNOMED-CT Code Diagnosis ICD10 Code Diagnosis IMO Codes Diagnosis Note [id number] Maren Steiner , [facility] [address] [address] 12/05/2019 10:11:47 12/05/2019 10:36:36 Routine gynecologic examination done [id number] 9101 Z01.419 Take Calcium with Vitamin D 12-1500mg daily. Do monthly self breast exams. It is advised to get annual flu shot in the fall and she could obtain at [facility] or [facility] care clinic. If you haven't received [...] CBE done Colonoscop y managed by GI/PCP. [id number] Maren Steiner , [facility] [address],[facility] [place] [address] 12/20/2020 09:40:19 12/20/2020 10:36:08 Gynecologic examination [id number] Z01.419 Take Calcium with Vitamin D 12-1500mg daily. Do monthly self breast exams. It is advised to get annual flu shot in the fall and she could obtain at [facility] or [facility]. If you haven't received the [...] concerns Screening for malignant neoplasm of colon [id number] Z12.11 [id number] Maren Steiner , [facility] [address] [address] 12/22/2021 11:29:20 12/22/2021 12:32:53 Gynecologic examination 54394122 Z01.419 Take Calcium with Vitamin D 12-1500mg daily. Do monthly self breast exams. It is advised to get annual flu shot in the fall and she could obtain at [facility] or [facility]. If you haven't received the [...] UTD PCP Routine Labs UTD PCPMammo ordered [id number] Maren Steiner , [facility] [address] [address] 12/25/2023 09:42:52 12/25/2023 10:12:46 Gynecologic examination [id number] Z01.419 Take Calcium with Vitamin D 12-1500mg daily. Do monthly self breast exams. It is advised to get annual flu shot in the fall and she could obtain at [facility] or [facility] care clinic. If you haven't received [...] Labs UTD PCPMammo ordered Screening mammography 24 614921 Z12.31 Dyspareunia [id number] N94 .10 Due to postmenopa usal changesTri [...] the vagina are recommende d. Resources: https://ww w.Plays.IOus e.org/docs /default-s ource/for- women/mn-v aginal-dry ness.pdf Health Concerns Section Related Observation LastModified by Organization Detai ls LastModified Time None Recorded Concern Status LastModified by Organization Details LastModified Time None Recorded Advance Directives Directive N: Payers Insurance Date Sequence Insurance Name Policy Number Policy Canas Covered Member ID Canas Member ID Guarantor Name 08/29/2021 1 [employer] (MEDICARE REPLACEMENT/ ADVANTAGE - HMO) [id number] Lizz Morin [id number] Lizz Hillside 12/20/2021 1 [employer] (HMO) [id number] Lizz R Hillside [id number] Lizz Mikel 12/22/2023 1 [employer] [id number] Lizz R Hillside [id number] Lizz Hillside Notes Date Note Type Note Provider Name and Address Organization Details Recorded Time 0 text/html Annual GYNReported by Patient Maren Steiner [facility] [address], [place], [address], [facility] 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 For vaginal bleeding, patient reportshistory of menopause having occurredandno history of post menopausal bleeding. For urinary symptoms, patient reportsno hematuria,no incontinence,no nocturia, andno urinary frequency. For vulva, patient reportsno genital lesionandno vulvar atrophy. For vagina, patient reportsnormal vaginal dischargeandno vaginal atrophy.Breast symptomsFor breast, patient reportsno breast lump,no nipple discharge, andno breast pain.Psychological symptomsFor sexual complaints, patient reportsno sexual complaints. For psychological symptoms, patient reportsno depressionandno anxiety.Preventative measuresFor preventive measures, patient reportsencourage regular mammograms starting age 40,encourage self breast examination,encourage regular exercise,encourage no tobacco use,needs to schedule mammogram, andneeds to schedule colonoscopy(dexa 2019 per pt osteopenia). AMANDA Dunlap [address], [place], [address], [facility] 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 For vaginal bleeding, patient reportshistory of menopause having occurredandno history of post menopausal bleeding. For urinary symptoms, patient reportsno hematuria,no incontinence,no nocturia, andno urinary frequency. For vulva, patient reportsno genital lesionandno vulvar atrophy. For vagina, patient reportsnormal vaginal dischargeandno vaginal atrophy.Breast symptomsFor breast, patient reportsno breast lump,no nipple discharge, andno breast pain.Psychological symptomsFor sexual complaints, patient reportsno sexual complaints. For psychological symptoms, patient reportsno depressionandno anxiety.Preventative measuresFor preventive measures, patient reportsencourage regular mammograms starting age 40,encourage self breast examination,encourage regular exercise,encourage no tobacco use,needs to schedule mammogram,needs to schedule colonoscopy (has this scheduled with pcp), andneeds to schedule bone density (scheduled by pcp). Maren Steiner [facility] [address], [place], [address], [facility] 12/22/2021 12:31:35 4 text/html Annual Quality Control Auditor Post-MenopausalReported by PatientGenitourinary symptomsFor menopausal symptoms, patient reportsinadequacy of lubrication of vaginal mucosabut reportsno menopausal symptoms. For vulva, patient reportsatrophic vulvabut reportsno genital lesion. For vaginal bleeding, patient reportshistory of menopause having occurredandno history of post menopausal bleeding. For urinary symptoms, patient reportsno hematuria,no incontinence,no nocturia, andno urinary frequency. For vagina, patient reportsnormal vaginal dischargeandno vaginal atrophy.Breast symptomsFor breast, patient reportsno breast lump,no nipple discharge, andno breast pain.Psychological symptomsFor sexual complaints, patient reportsno sexual complaints. For psychological symptoms, patient reportsno depressionandno anxiety.Preventative measuresFor preventive measures, patient reportsencourage regular mammograms starting age 40,encourage self breast examination,encourage regular exercise,encourage no tobacco use,needs to schedule mammogram,history of recent colonoscopy, andneeds to schedule bone density (rx by pcp). Maren Steiner [facility] [address], [place], [address], [facility] 12/25/2023 10:11:59 OBGyn Episode Ob Episode Information Episode Created Date Number of Fetuses Patient Bloodtype Patient rh Status Prepregnancy Weight lbs Domestic Partner Domestic Partner Phone Father Name Ore Washer Status 12/05/19 20 1 CLOSED Fetus Data [...] Domestic Partner Domestic Partner Phone Father Name Ore Washer Status 12/05/19 20 1 CLOSED Fetus Data [...] Domestic Partner Domestic Partner Phone Father Name Ore Washer Status 12/24/19 21 1 CLOSED Fetus Data [...]
[2025-06-03 13:20] LABS: Alanine Aminotransferase 17 U/L (6-35); Albumin Level 4.6 g/dL (3.5-5.1); Alkaline Phosphatase 55 U/L (38-126); Anion Gap 7 mmol/L (4-12); Aspartate Amino Transferase 29 U/L (14-36); Bilirubin,Total 0.7 mg/dL (0.2-1.3); Blood Urea Nitrogen 14 mg/dL (7-17); Calcium 9.4 mg/dL (8.4-10.2); Carbon Dioxide 29 mmol/L (22-30); Chloride 103 mmol/L (98-107); Estimated Glomerular Filt Rate > 60; Glucose 90 mg/dL (65-110); Potassium 5.1 mmol/L (3.4-5.0); Sodium 139 mmol/L (137-145); Total Protein 8.0 g/dL (6.3-8.2)
[2025-06-03 13:51] LABS: Thyroid Stimulating Hormone Reflex 3.310 uIU/mL (0.465-4.68)
[2025-06-03 14:07] LABS: Hemoglobin A1C 6.0 % (<5.7)
== END 2025-06-03 09:41 | disposition home or self-care (01) ==
LOC: ANHGOSHLAB 09:41
PROVIDERS: PCP Family Medicine; Visit Provider Family Medicine
DX: F32.A Depression, unspecified (principal); E78.2 Mixed hyperlipidemia; R73.03 Prediabetes
CPT/HCPCS: 36415; 80053; 83036; 84443